=== PATIENT | male | born 1940 | race Caucasian/White ===

== ENCOUNTER 2018-03-13 12:17 | Observation (INO) ==
[2018-03-13] MEDS ORDERED: Naloxone 0.4 MG/ML INJ IVP PRN (14:09)
[2018-03-13] MEDS ORDERED: traMADol 50 MG TABLET PO PRN (14:09)
[2018-03-13] MEDS ORDERED: Acetaminophen 325 MG TABLET PO PRN (14:09)
--- NOTE | 2018-03-13 15:39 | Internal Med History&Physical ---
Date of Encounter: 03/13/18 Time of Encounter: 15:10 Internal Medicine - H&P: HPI Chief complaint: Syncope Admitted From: Emergency Dept Plans for Post Hospital Care: Home History of present illness: Mr. Davidson is a 77 year old male with known past medical history of COPD, hypertension, hyperlipidemia, diabetes type II, paroxysmal a fib on eliquis for anticoagulation, who follows with collector of internal revenue Dr. Saxena who recently increased his Cardizem to 240 mg, now he was brought into the [facility] emergency room by family stating that he had syncopal episode this morning while he was drinking coffee. Patient stated he felt lightheaded, dizzy and diaphoretic before he passed out. It was replaced by his family members they noticed patient had some tremors, shakiness and his opportunism lower extremities concerning for possible convulsions. The whole episode lasted at least more than 10 minutes. By the time patient became more alert, awake he was with EMS and his hearted was in 30s. His initial EKG showed junctional rhythm with heart rate of 34 to the right bundle branch block patient was given atropine and IV fluid bolus. Patient had CT of the head done after he returned back from the CT scan he had another brief episode of he became very pale, his eyes rolled back and he was unresponsive for a few seconds. At that time his heart rate was in 70s blood pressure was 119 / 68. The ER doctor talked to our on-call collector of internal revenue Dr. Dominguez, who believes that patient had junctional bradycardia because of recent increasing dose of Cardizem on top of his regular Coreg. Pt was seen and examined at bed side here. He is alert, awake and O x 3. Denied any CP / SOB. Past Med Surg Social Fam HX - Past Medical History Medical history: COPD, coronary artery disease, diabetes, hypertension, myocardial infarction Psychiatric history: no psych history - Past Surgical History Surgical History: appendectomy Additional surgical history: heart cath - Social History Smoking Status: Former smoker Alcohol use: occasionally Drug use: none - Additional Family History Additional family history: Family hsitory reviewed and non contribuitory to current problem. Internal Medicine - H&P: Meds Albuterol Sulfate [Ventolin Hfa] 18 gm IH Q4H PRN 03/13/18 [History] Apixaban [Eliquis] 5 mg PO BID 03/13/18 [History] Atorvastatin [Lipitor] 40 mg PO HS 03/13/18 [History] Carvedilol 12.5 mg PO BID 03/13/18 [History] Diltiazem HCl [Cardizem LA] 240 mg PO DAILY 03/13/18 [History] Dulaglutide [Trulicity] 0.75 mg SQ QWEEK 03/13/18 [History] FLUoxetine HCl [PROzac] 20 mg PO DAILY 03/13/18 [History] GlipiZIDE [Glipizide Xl] 10 mg PO 03/13/18 [History] Insulin Glargine,Hum.rec.anlog [Lantus Solostar] 70 unit SQ QPM 03/13/18 [History] Losartan/Hydrochlorothiazide [Losartan-Hctz 100-25 mg Tab] 1 each PO DAILY 03/13/18 [History] Metformin HCl [Fortamet] 1,000 mg PO BID 03/13/18 [History] Pregabalin [Lyrica] 150 mg PO BID 03/13/18 [History] Tiotropium [Spiriva] 18 mcg IH 0700 03/13/18 [History] hydrALAZINE [HydrALAZINE] 25 mg PO TID 03/13/18 [History] Allergy/AdvReac Type Severity Reaction Status Date / Time Iodinated Contrast- Oral and Allergy Hives Verified 03/13/18 10:22 IV Dye All Systems PM: A 10-system review of systems was performed and is negative for pertinent findings except as documented above in the HPI. Review of systems: All the systems are reviewed everything is benign except the systems and symptoms I mentioned in the history of present illness - Constitutional Vitals: Temp Pulse Resp BP Pulse Ox 97.6 F 63 18 178/77 100 03/13/18 14:14 03/13/18 14:14 03/13/18 14:14 03/13/18 14:14 03/13/18 14:14 General appearance: Present: mild distress, A&O X 3, answers questions appropriately Exam: See below - Head Head exam: Present: atraumatic, normal inspection - Neck Neck exam general surgery: Present: supple - Respiratory Respiratory exam: Present: decreased breath sounds. Absent: rales, respiratory distress, rhonchi, wheezes - Cardiovascular Cardiovascular exam: Present: bradycardia, +S1, +S2. Absent: systolic murmur, tachycardia - GI/Abdominal GI/Abdominal exam: Present: distended, normal bowel sounds, soft. Absent: rebound, rigid, tenderness - Extremities Exam Extremities exam: Absent: calf tenderness, pedal edema, tenderness - Back Exam Back exam: Absent: CVA tenderness (L), CVA tenderness (R) - Neurological Exam Neurological exam: Present: alert, oriented X3 - Psychiatric Psychiatric exam: Present: normal affect, normal mood - Skin Skin exam: Absent: rash - Assessment and plan (1) Syncope Current Visit: Yes Status: Acute Assessment and plan: Will place the pt into Tele for observation Pt's Syncope seems to be more like due to bradycardia also his syncopal episode is concerning for possible seizure activity to however still need to r/o ACS vs Arrhythmia will place the pt on surveillance system monitor check serial troponin so far negative trop Cont ASA will get 2 D echo in AM Will check FLP in AM reviewed his EKG from [facility] [address] which showing junctional bradycardia Repeat EKG showed NSR with HR @ 69. 1st degree AV block with MO @ 301 Ordered another EKG here cardiology already consulted by [facility] [address] attending Held his Coreg and Cardizem also holding his Eliquis if patient need to go for any procedures in the morning Qualifiers: Syncope type: unspecified Qualified Code(s): R55 - Syncope and collapse (2) Symptomatic bradycardia Current Visit: No Status: Acute Assessment and plan: as per above NPO after mid night Held Coreg + Cardizem (3) Seizure Current Visit: Yes Status: Acute Assessment and plan: His syncopal episodes are concerning for seizure activity too Neuro consulted for further eval seizure precautions EEG in the morning MRI of brain for further work up appreciate urology recommendations will hold off anticonvulsant medication for now (4) Paroxysmal A-fib Current Visit: Yes Status: Acute Assessment and plan: Held his Coreg and Cardizem also holding his Eliquis if patient need to go for any procedures in the morning (5) CAD (coronary artery disease) Current Visit: Yes Status: Acute Assessment and plan: Resumed all his home medications except beta luci and Cardizem Qualifiers: Coronary Disease-Associated Artery/Lesion type: [place] artery [place] vs. transplanted heart: [place] heart Associated angina: without angina Qualified Code(s): I25.10 - Atherosclerotic heart disease of [place] coronary artery without angina pectoris (6) HTN (hypertension) Current Visit: Yes Status: Acute Assessment and plan: Fairly controlled resumed home medications Losartan and Hydralazine will give hydralazine IV PRN Qualifiers: Hypertension type: essential hypertension Qualified Code(s): I10 - Essential (primary) hypertension (7) DM2 (diabetes mellitus, type 2) Current Visit: Yes Status: Acute Assessment and plan: On ADA diet check hemoglobin A-1 C placed him on insulin sliding scale and Levemir at 30 U HS Qualifiers: Diabetes mellitus terminal press operator insulin use: with fpc use Diabetes mellitus complication status: without complication Qualified Code(s): E11.9 - Type 2 diabetes mellitus without complications; Z79.4 - terminal press operator (current) use of insulin - Time Spent With Patient Total time spent is greater than 50% in coordination of care (as documented) at patient's floor/unit and/or counseling patient:
[2018-03-13] MEDS ORDERED: Dextrose Gel 15 GM/37.5 ML TUBE PO PRN ×2 (15:44)
[2018-03-13] MEDS ORDERED: D5% in Water 1,000 ML IVC PRN (15:44)
[2018-03-13] MEDS ORDERED: *HR* Dextrose 50 % in Water (Syg) 50 ML SYRINGE IVP PRN (15:44)
--- NOTE | 2018-03-13 15:59 | Neurology - Consult Note ---
<Abdirahman Quintanilla J - Last Filed: 03/13/18 16:05> Date of Encounter: 03/13/18 Time of Encounter: 15:42 Assessment and Plan (1) Syncope Current Visit: Yes Status: Acute Patient presented with syncope and collapse secondary to symptomatic bradyca rdia. It is reported that during the syncopal episode he was having convulsive activity, thus Neurology has been consulted. The patient cannot recall any of these events however they were witnessed by friends and family. He denies any tongue biting, loss of bowel or bladder function. No prior history of seizure disorder. I suspect that most likely the convulsive activity was secondary to hypoxia given a loss of consciousness and symptomatic bradycardia. However I agree with seizure workup as outlined below. On presentation was found to have a heart rate in the 30s. EKG w/ junctional bradycardia, right bundle branch block and anterior fascicular block. History of A. fib, on eliquis and Cardizem; Cardizem dose recently increased. CT of head obtained in the ED and per my review is negative for acute intracranial abnormality. -Recommend syncopal workup; I have discussed this with the primary team -TSH -Obtain carotid Dopplers -Echocardiogram -MRI of brain -EEG -cardiology also following -continuous cardiac monitoring -serial troponins Qualifiers: Syncope type: unspecified Qualified Code(s): R55 - Syncope and collapse (2) Symptomatic bradycardia Current Visit: No Status: Acute plan as stated above. (3) Convulsions Current Visit: Yes Status: Acute plan as stated above Qualifiers: Convulsion type: unspecified Qualified Code(s): R56.9 - Unspecified convulsions History of Present Illness Chief complaint: Symptomatic bradycardia, convulsions with concern for seizures HPI: Mr. Davidson is a 77 year old male with a PMH of COPD, HLD, HTN, DM II, A-fib (on eliquis, cardizem) who presents to [facility] with symptomatic bradycardia heart rate in 30s. He reports that he was at a local gas station this morning having coffee with friends and he began to feel dizzy and had a loss of consciousness. He states that he does not remember any of these events. However, his daughter is at bedside reports that she was informed that during this episode he was also having convulsions and she states that while in the ED he had a similar event with convulsions. On arrival to the ED he was found to have a heart rate in the 30s and to have a junctional rhythm with a right bundle-branch block and an anterior fascicular block. I reviewed the EKG and confirmed this as well. He does note that his cardizem dose was recetnly increased. This would certainly explain his bradycardia and syncope and could cause the convulsive activity; considering the loss of consciousness and bradycardia he may have had hypoxic induced convulsions. He denies any history of seizures. He denies any tongue biting or loss of bowel/bladder function. He does admit to being confused shortly after the events and to being lethargic as well. Of note, he has had syncopal episodes in the past but denies any workup for the events. The patient states that he feels like these episodes were caused by his blood sugar as he reports taking 50 additional units of insulin this morning due to hyperglycemia. I have reviewed his CT of the head and find no acute intracranial abnormalities. Additionally, his CBC and BMP showed no derangements or signs of infection. As such, neurology will follow for syncope and concerns for seizures. Past Med Surg Social Fam HX - Past Medical History Medical history: COPD, coronary artery disease, diabetes, hypertension, myocardial infarction Psychiatric history: no psych history - Past Surgical History Surgical History: appendectomy Additional surgical history: heart cath - Social History Smoking Status: Former smoker Alcohol use: occasionally Drug use: none Medications and Allergies Albuterol Sulfate [Ventolin Hfa] 18 gm IH Q4H PRN 03/13/18 [History] Apixaban [Eliquis] 5 mg PO BID 03/13/18 [History] Atorvastatin [Lipitor] 40 mg PO HS 03/13/18 [History] Carvedilol 12.5 mg PO BID 03/13/18 [History] Diltiazem HCl [Cardizem LA] 240 mg PO DAILY 03/13/18 [History] Dulaglutide [Trulicity] 0.75 mg SQ QWEEK 03/13/18 [History] FLUoxetine HCl [PROzac] 20 mg PO DAILY 03/13/18 [History] GlipiZIDE [Glipizide Xl] 10 mg PO 03/13/18 [History] Insulin Glargine,Hum.rec.anlog [Lantus Solostar] 70 unit SQ QPM 03/13/18 [History] Losartan/Hydrochlorothiazide [Losartan-Hctz 100-25 mg Tab] 1 each PO DAILY 03/13/18 [History] Metformin HCl [Fortamet] 1,000 mg PO BID 03/13/18 [History] Pregabalin [Lyrica] 150 mg PO BID 03/13/18 [History] Tiotropium [Spiriva] 18 mcg IH 0700 03/13/18 [History] hydrALAZINE [HydrALAZINE] 25 mg PO TID 03/13/18 [History] Allergy/AdvReac Type Severity Reaction Status Date / Time Iodinated Contrast- Oral and Allergy Hives Verified 03/13/18 10:22 IV Dye All Systems: The remainder of the systems were reviewed and are negative Review of Systems: REVIEW OF SYSTEMS GENERAL: Negative for any nausea, vomiting, fevers, chills, or weight loss, POSITIVE for fatigue which is chronic ongoing greater than 6 months NEUROLOGIC: Negative for any facial asymmetry, dysphagia, dysarthria, hemiparesis, hemisensory deficits, vertigo, ataxia, paresthesias, speech or language dysfunction - - POSITIVE: Reporting intermittent double vision lasting a few seconds. Not present at time of assessment. Family at bedside and mentions convulsive activity with loss of consciousness, confusion and lethargy. PSYCH: negative: agitation/irritability, anxiety, delirium, restlessness, personality changes. HEENT: Negative for any head trauma, neck trauma, neck stiffness, photophobia, phonophobia, dysphagia, CARDIAC: Negative for any chest pain, dyspnea on exertion, HTN, peripheral edema. PULMONARY: Negative for any shortness of breath GENITOURINARY: Negative for any dysuria, hematuria, incontinence. ENDOCRINE: Negative Thyroid trouble, heat/cold intolerance, excessive sweating, thirst, hunger, MUSCULOSKELETAL: negative Joint pain, stiffness, loss of strength, Joint swelling, muscle pain/swelling, limitations to motor activity or tolerance Physical Examination - Vital Signs Vital Signs: Initial Vital Signs Temp Pulse Resp BP Pulse Ox 97.6 F 63 18 178/77 100 03/13/18 14:14 03/13/18 14:14 03/13/18 14:14 03/13/18 14:14 03/13/18 14:14 - Exam Exam: Examination: General Examination: *CONSTITUTIONAL: Temperature 97.6, pulse rate 63, respiratory rate 18 on 2 L nasal cannula and 100%, BP 178/77 *GENERAL APPEARANCE OF PATIENT appears healthy and well groomed *EYES: pupils equal, round, reactive to light and accommodation, conjunctiva clear without masses or ulcerations, fundi normal. *CARDIOVASCULAR RRR, S1, S2, no mumurs, rubs, or gallops, no peripheral edema, distal temperature normal, dorsalis pedis pulses normal. 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 No abnormal movements, fasciculations or atrophy identified. Neurological: *ORIENTATION to person, place, time and situation *RECURRENT AND REMOTE MEMORY short-term memory intact, however, patient unable to recall events from this morning. *ATTENTION AND CONCENTRATION are normal, keep her to space and examined follow commands and does not appear to be easily distracted *LANGUAGE FUNCTION no significant aphasia or dysarthia was noted. *FUND OF KNOWLEDGE aware of current events, past history, vocabulary *MENTAL attention span and concentration normal. , He appears to have appropriate insight and good judgment *CN II optic fundi were normal, no papilledema noted. *CN III,IV, PERRLA extraocular eye movements were full, no nystagmus and no ptosis noted. *CN V shows normal sensation and jaw opens symmetrically. *CN VII shows normal facial movement symmetrically, upper and lower bilaterally. *CN VIII shows no significant hearing loss on examination in the office. *CN IX,,X palate elevated symmetrically and normal gag reflex was noted. *CN XI normal strength in the sternocleidomastoid muscles, symmetrical shoulder shrugging. *CN XII tongue protruded in the midline, with normal strength and movement. *SENSORY EXAMINATION pinprick sensation intact, and light touch(vibration sense). *REFLEXES: deep tendon reflexes were normal and symmetrical , grade 1/4 diffusely but he does have a history of diabetes, no pathological reflexes were noted. *CEREBELLAR TESTING normal finger to nose, heel/knee/krishna, and tandem walk. *PAIN LEVEL 0/10 Results - Diagnostic Findings EKG: image reviewed Chest x-ray: image reviewed Additional findings: CT head reviewed and negative for acute intercranial abnormality Consult Discharge Plan - Plan Referrals: Glenn Saucedo MD [Primary Care Provider] - <Ruslan Olvera I - Last Filed: 03/13/18 16:25> Date of Encounter: 03/13/18 Assessment and Plan (1) Symptomatic bradycardia Current Visit: No Status: Acute (2) Syncope Current Visit: Yes Status: Acute Pt was seen and examined, my medical decision was reviewed with the CHIEF ESTIMATOR , I agree with the documented findings, disposition and treatment plan, as described except to the extent set forth below. Pt symptoms and history seemed to be consistent with convulsive syncope, likely related to hypoperfusion, brain hypoxia can trigger convulsive activity but did not necessary means these are seizures especially when patient does not have any postictal state with these episodes. Regardless we will get an EEG as well as imaging of the head to exclude any intracranial abnormality Cardiology services consulted for the treatment of his bradycardia Discussed and explained to the patient and family Ruslan Olvera MD Qualifiers: Syncope type: unspecified Qualified Code(s): R55 - Syncope and collapse (3) Convulsions Current Visit: Yes Status: Acute Qualifiers: Convulsion type: unspecified Qualified Code(s): R56.9 - Unspecified convulsions History of Present Illness HPI: Mr. Davidson is a 77 year old male All Systems: The remainder of the systems were reviewed and are negative Physical Examination - Vital Signs Vital Signs: Initial Vital Signs Temp Pulse Resp BP Pulse Ox 97.6 F 63 18 178/77 100 03/13/18 14:14 03/13/18 14:14 03/13/18 14:14 03/13/18 14:14 03/13/18 14:14
[2018-03-13 16:29] LABS: Estimated Average Glucose 180 mg/dl; Hemoglobin A1C 7.9 %
[2018-03-13] MEDS: Insulin LISPRO 300 UNITS/3 ML VIAL SQ SCH ×2 (16:49→21:22)
[2018-03-13] MEDS ORDERED: Insulin DETEMIR 100 UNIT/ML X5UNITS SQ SCH (21:00)
[2018-03-13] MEDS ORDERED: Perflutren Lipid Microsphere 1.3 ML in 0.9 % Sodium Chloride 8.7 ML IVP ONE (21:01)
[2018-03-13] MEDS: *HR* HYDROcodone/Acet 5/325 mg TABLET PO PRN (21:20)
[2018-03-13] MEDS: hydrALAZINE 25 MG TABLET PO SCH (21:20)
[2018-03-13] MEDS: Pregabalin 75 MG CAPSULE PO SCH (21:21)
[2018-03-14 04:18] LABS: Hematocrit 37.5 % (37.5-50.1); Hemoglobin 12.4 g/dL (12.9-16.9); Mean Corpuscular HGB Conc 33.1 g/dL (31.6-35.5); Mean Corpuscular Hemoglobin 28.2 pg (28.0-33.3); Mean Corpuscular Volume 85.2 fL (83.0-100.0); Mean Platelet Volume 12.2 fL (9.4-12.4); Platelet Count 185 K/mcL (140-400); Red Cell Distribution Width 13.2 % (11.5-14.5)
[2018-03-14 04:38] LABS: BUN/Creatinine Ratio 21 (6-26); Blood Urea Nitrogen 21 mg/dL (8-23); Calcium 9.3 mg/dL (8.6-10.3); Carbon Dioxide 26 mEq/L (23-29); Chloride 106 mEq/L (98-107); Chol/HDL Ratio 2.9 (0-4.9); Cholesterol 102 mg/dL (< 200); Glucose 97 mg/dL (70-105); HDL Cholesterol 35 mg/dL (40-59); LDL Cholesterol,Calculated 33 mg/dL (0-99); Magnesium 1.4 mg/dL (1.6-2.6); Osmolality,Calculated 293 (280-300); Potassium 3.8 mEq/L (3.5-5.1); Sodium 140 mEq/L (136-145); Triglycerides 171 mg/dL (< 150); eGFR For Non-African Americans > 60 (> 60)
[2018-03-14] MEDS: Tiotropium 18 MCG inhalation IH SCH (08:05)
[2018-03-14] MEDS: Magnesium Oxide 400 MG TABLET PO SCH (09:35)
[2018-03-14] MEDS: Pregabalin 75 MG CAPSULE PO SCH ×2 (09:35→19:52)
[2018-03-14] MEDS: hydrALAZINE 25 MG TABLET PO SCH ×3 (09:35→19:52)
[2018-03-14] MEDS: Insulin LISPRO 300 UNITS/3 ML VIAL SQ SCH ×4 (09:36→21:50)
--- NOTE | 2018-03-14 09:53 | Cardiology Consult Note ---
<Mariana Rodgers - Last Filed: 03/14/18 11:18> Date of Encounter: 03/14/18 Time of Encounter: 08:00 Assessment and Plan (1) Symptomatic bradycardia Current Visit: No Status: Acute Yesterday had an episode with symptomatic bradycardia. He is on carvedilol 12.5 mg and diltiazem 240 at home. His EKG showed junctional rhythm with heart rate in the 30s upon EMS presentation. Continue to hold carvedilol and diltiazem at this time heart rate is in the 60s. TSH is low indicated possible hyperthyroidism which can further effect the heart rate but most often is associated with tachycardia not bradycardia. (2) Syncope Current Visit: Yes Status: Acute Reported one syncopal episode at home yesterday and during that episode he was noted to be bradycardic. He noted two previous syncopal episodes last year in [place] and during the last episode his glucose was noted to be in high 400s. During this episode his home glucose was above 250. Neurology is working up the syncope given he also had witnessed tremor and shakiness associated with this episode. -Further recommendations from neurology Qualifiers: Syncope type: unspecified Qualified Code(s): R55 - Syncope and collapse (3) HTN (hypertension) Current Visit: Yes Status: Acute Chronic hypertension. Notes history since the age of 20. Currently he is only on losartan. Consider restarting home HCTZ. Qualifiers: Hypertension type: essential hypertension Qualified Code(s): I10 - Essential (primary) hypertension (4) Afib Current Visit: Yes Status: Chronic History of atrial fibrillation. Was on eliquis and rate control medications at home. Two weeks ago his diltiazem dose was increased to 240. At presentation to the hospital his rhythm was regular although he was bradycardic. -Restart home carvedilol -Decreased cardizem to 120 mg -Restarted eliquis Qualifiers: Atrial fibrillation type: chronic Qualified Code(s): I48.2 - Chronic atrial fibrillation Discussion w patient/family: The assessment and plan as outlined above was discussed with the patient and/or family members who expressed understanding and agreement. All questions were answered. Thank you for involving us in the care of your patient. Please call with any questions. History of Present Illness Consult date: 03/13/18 Requesting physician: Olesya Waldron Consult reason: symptomatic afib History of present illness: Mr. Davidson is a 77 year old male who presented to the ED complaining of recent syncopal episode associated with tremor and shakiness of extremities which lasted 10 minutes. He noted two prior similar episodes and he noted the last episode was associated with hyperglycemia with his glucose reading of above 400 during the last episode He noted this episode was unprovoked yesterday, he was sitting in a chair after breakfast and drinking his coffee and started having this episode which was witnessed by his friend. His friend checked his glucose at that time and his blood sugar was noted to be above 250 at that time. He had taken his morning medications prior to episode. He denied any changes in his diet or lifestyle but noted 2 weeks ago he had an increase in his cardizem to 240 and since taking the medication he had not noticed any changes in his heart rate. Denied any palpitation. When EMS presented his heart rate was noted to be in the 30s. His initial EKG showed junctional rhythm with right bundle branch block and received atropine with IV fluid bolus. Since his admission his heart rate has remained in the 60s. His blood pressure is elevated but he is not receiving some of his home antihypertensives. He is laying comfortably in bed today and has no further complaints or any further syncopal episodes. Denied fever, chills, nausea, emesis, shortness of breath or chest pain. Past Med Surg Social Fam HX - Past Medical History Medical history: COPD, coronary artery disease, diabetes, hypertension, myocardial infarction Psychiatric history: no psych history - Past Surgical History Surgical History: appendectomy Additional surgical history: heart cath - Social History Smoking Status: Former smoker Alcohol use: occasionally Drug use: none Medications and Allergies Albuterol Sulfate [Ventolin Hfa] 2 puff IH Q4H PRN 03/13/18 [History] Apixaban [Eliquis] 5 mg PO BID 03/13/18 [History] Atorvastatin [Lipitor] 40 mg PO DAILY 03/13/18 [History] FLUoxetine HCl [PROzac] 20 mg PO DAILY 03/13/18 [History] Insulin Glargine,Hum.rec.anlog [Lantus Solostar] 70 unit SQ HS 03/13/18 [History] Losartan/Hydrochlorothiazide [Losartan-Hctz 100-25 mg Tab] 1 tab PO DAILY 03/13/18 [History] Metformin HCl [Fortamet] 1,000 mg PO BID 03/13/18 [History] Pregabalin [Lyrica] 150 mg PO BID 03/13/18 [History] RX: Carvedilol 12.5 mg PO BID 03/13/18 [History] Tiotropium [Spiriva] 18 mcg IH DAILY 03/13/18 [History] RX: GlipiZIDE XL (24 HR) [Glucotrol XL] 10 mg PO DAILY 03/14/18 [History] Vitamin B Complex [Balanced B-50] 1 tab PO DAILY 03/14/18 [History] dilTIAZem HCl [Diltiazem 24Hr ER] 240 mg PO DAILY 03/14/18 [History] Allergy/AdvReac Type Severity Reaction Status Date / Time Iodinated Contrast- Oral and Allergy Hives Verified 03/14/18 08:09 IV Dye All Systems Review: The remainder of the systems were reviewed and are negative - Constitutional Constitutional: no fatigue, no fever(s), no weakness - Cardiovascular Cardiovascular: dyspnea on exertion, orthopnea, no chest pain at rest, no chest pain with exertion, no dyspnea at rest, no palpitations, no paroxysmal nocturnal dyspnea - Respiratory Respiratory: no cough, no dyspnea - Gastrointestinal Gastrointestinal: no abdominal pain, no hematochezia, no melena - Genitourinary Genitourinary: no dysuria, no hematuria - Musculoskeletal Musculoskeletal: no muscle weakness, no myalgias - Integumentary Integumentary: no erythema, no rash - Neurological Neurological: no focal weakness, no numbness, no syncope - Psychiatric Psychiatric: no anxiety, no depression Physical Examination Vital Signs, Last 4 Hours Temp Pulse Resp BP Pulse Ox 03/14/18 07:40 97.6 F 61 18 186/78 95 General: Conversant, No Apparent Distress HEENT: Atraumatic, Normocephaly, Mucus Membranes Moist Neck: No JVD, Normal carotid pulses Cardiac: Reg Rate and Rhythm, Normal S1 and S2, No Murmur Lungs: Normal Breath Sounds, No Wheeze, Rales, Rhonchi Neuro: Alert and responsive, No focal deficits noted Abdomen: Soft, Non-Tender Skin: No rashes noted on visualized skin Musculoskeletal: No Chest Wall Tenderness Extremities: No Edema, Normal Pulses Results 03/14/18 03:51 03/14/18 03:51 Lab Results 03/13/18 03/13/18 03/13/18 14:31 16:06 20:08 WBC Hgb Hct Plt Count Sodium Potassium Chloride Carbon Dioxide BUN Creatinine Glucose Calcium Magnesium Troponin I < 0.03 < 0.03 TSH 0.090 L 03/14/18 03/14/18 03:51 03:51 WBC 6.7 Hgb 12.4 L Hct 37.5 Plt Count 185 Sodium 140 Potassium 3.8 Chloride 106 Carbon Dioxide 26 BUN 21 Creatinine 1.00 Glucose 97 Calcium 9.3 Magnesium 1.4 L Troponin I TSH Consult Discharge Plan - Plan Referrals: Glenn Saucedo MD [Primary Care Provider] - 03/20/18 11:00 am () <Vito Saxena - Last Filed: 03/14/18 11:59> Date of Encounter: 03/14/18 - Attending Attestation I examined this patient and my medical decision-making was reviewed with the Resident Physician. I agree with the documented findings, disposition and treat ment plan as described except to the extent set forth below. Known PAF, HTN. Presents with bradycardia likely secondary to medications. Would hold cardizem. If blood pressure requires could add back norvasc. Assessment and Plan Discussion w patient/family: The assessment and plan as outlined above was discussed with the patient and/or family members who expressed understanding and agreement. All questions were answered. Thank you for involving us in the care of your patient. Please call with any questions. History of Present Illness History of present illness: Mr. Davidson is a 77 year old male All Systems Review: The remainder of the systems were reviewed and are negative Physical Examination Vital Signs, Last 4 Hours Temp Pulse Resp BP Pulse Ox 03/14/18 11:49 98.7 F 70 17 178/80 94 03/14/18 08:05 16 95 Results 03/14/18 03:51 03/14/18 03:51 Lab Results 03/13/18 03/13/18 03/13/18 14:31 16:06 20:08 WBC Hgb Hct Plt Count Sodium Potassium Chloride Carbon Dioxide BUN Creatinine Glucose Calcium Magnesium Troponin I < 0.03 < 0.03 TSH 0.090 L 03/14/18 03/14/18 03:51 03:51 WBC 6.7 Hgb 12.4 L Hct 37.5 Plt Count 185 Sodium 140 Potassium 3.8 Chloride 106 Carbon Dioxide 26 BUN 21 Creatinine 1.00 Glucose 97 Calcium 9.3 Magnesium 1.4 L Troponin I TSH
--- NOTE | 2018-03-14 10:12 | Neurology Progress Note ---
<Abdirahman Quintanilla J - Last Filed: 03/14/18 13:37> Date of Encounter: 03/14/18 Time of Encounter: 10:11 Assessment and Plan (1) Syncope Current Visit: Yes Status: Acute Patient presented with syncope and collapse secondary to symptomatic bradyc ardia. During syncopal event was witnessed to have convulsive activity. Neurology has been consulted for evaluation of seizures/convulsions. The patient does not have any prior history of seizures. MRI brain did not reveal any acute infarct or organic cause for seizure activity. EEG is pending at this time. Echocardiogram with LVEF 60-65%, atypical septal motion due to BBB, moderate LV WOLF, mild MR I believe most likely that the patient has had convulsive syncope as hypoperfusion with syncope BRAIN hypoxia and convulsions. Overnight the patient continues to be stable and has not had any return of syncope or seizure-like events. He reports that he is back to baseline status. Per my examination the patient does not have any focal or lateralizing deficits. Cardiology following for management of symptomatic bradycardia. Further planning will be based on EEG results. At this time we will continue to monitor. Qualifiers: Syncope type: unspecified Qualified Code(s): R55 - Syncope and collapse (2) Symptomatic bradycardia Current Visit: No Status: Acute plan as stated above. (3) Convulsions Current Visit: Yes Status: Acute plan as stated above Qualifiers: Convulsion type: unspecified Qualified Code(s): R56.9 - Unspecified conv ulsions Subjective Principal diagnosis: Symptomatic bradycardia, syncope and collapse, concern for seizures Interval history: Mr. Davidson is a 77 year old male with a PMH of COPD, HLD, HTN, DM II, A-fib (on eliquis, cardizem). He presented with symptomatic bradycardia heart rate in 30s. During syncopal event the patient was noted to have compulsive activity. Neurology was consulted for syncope and concern for seizures. Today the patient is resting comfortably in bed in no acute distress. He denies any return of syncope or seizure activities. He denies any chest pain, shortness of breath, palpitations. His heart rate is 70 bpm and RRR. He has had no acute change in condition over 90. I discussed the MRI findings with the patient and explained that he has not had an acute infarct. Furthermore discussed that I believe his convulsive activity was secondary to syncopal event with hypoxia. He did have an EEG this morning but the results are still pending at this time. He denies any further questions at this time. Objective - Constitutional Vitals: Temp Pulse Resp BP Pulse Ox 97.6 F 61 16 186/78 95 03/14/18 07:40 03/14/18 07:40 03/14/18 08:05 03/14/18 07:40 03/14/18 08:05 Exam: Examination: General Examination: *CONSTITUTIONAL: Temperature 90 8.7F, pulse rate 70, respiratory rate 17 and 94% on room air, BP 178/80 *GENERAL APPEARANCE OF PATIENT appears healthy and well groomed *EYES: pupils equal, round, reactive to light and accommodation, conjunctiva clear without masses or ulcerations, fundi normal. *CARDIOVASCULAR RRR, S1, S2, no mumurs, rubs, or gallops, no peripheral edema, distal temperature normal, dorsalis pedis pulses normal. Musculoskeletal: *GAIT AND STATION normal, with normal Romberg testing, no abnormalities such as broad base gait or spasticity *ASSESSMENT OF MUSCLE STRENGTH IN THE UPPER AND LOWER EXTREMITIES bilateral deltoid, bicep, tricep, display carver strength, hip flexors ,anterior tibialis, dorsoflexion of the foot 5/5 *MUSCLE TONE IN THE UPPER AND LOWER EXTREMITIES normal. No abnormal movements, fasciculations or atrophy identified. Neurological: *ORIENTATION to person, place, time and situation *RECURRENT AND REMOTE MEMORY intact *ATTENTION AND CONCENTRATION are normal, follows commands *LANGUAGE FUNCTION no significant aphasia or dysarthia was noted. *FUND OF KNOWLEDGE aware of current events, past history, vocabulary *MENTAL attention span and concentration normal, Retains appropriate insight and judgment *CN II optic fundi were normal, no papilledema noted. *CN III,IV, PERRLA extraocular eye movements were full, no nystagmus and no ptosis noted. *CN V shows normal sensation and jaw opens symmetrically. *CN VII shows normal facial movement symmetrically, upper and lower bilaterally. *CN VIII shows no significant hearing loss on examination in the office. *CN IX,,X palate elevated symmetrically and normal gag reflex was noted. *CN XI normal strength in the sternocleidomastoid muscles, symmetrical shoulder shrugging. *CN XII tongue protruded in the midline, with normal strength and movement. *SENSORY EXAMINATION pinprick sensation intact, and light touch(vibration sense). *REFLEXES: deep tendon reflexes were normal and symmetrical , grade 1/4 diffusely but he does have a history of diabetes, no pathological reflexes were noted. *CEREBELLAR TESTING normal finger to nose, heel/knee/krishna, and tandem walk. *PAIN LEVEL 0/10 Results - Laboratory Findings CBC and BMP: 03/14/18 03:51 03/14/18 03:51 Abnormal lab findings: Abnormal lab results Hgb 12.4 g/dL (12.9-16.9) L 03/14/18 03:51 POC Glucose 136 mg/dL (70-99) H 03/13/18 16:01 Hemoglobin A1c 7.9 % (-5.6) H 03/13/18 16:06 Magnesium 1.4 mg/dL (1.6-2.6) L 03/14/18 03:51 Triglycerides 171 mg/dL (< 150) H 03/14/18 03:51 VLDL Cholesterol, Calc 34 mg/dL (< 31) H 03/14/18 03:51 HDL Cholesterol 35 mg/dL (40-59) L 03/14/18 03:51 TSH 0.090 mcIU/mL (0.340-5.600) L 03/13/18 16:06 Consult Discharge Plan - Plan Referrals: Glenn Saucedo MD [Primary Care Provider] - 03/20/18 11:00 am () <Ruslan Olvera I - Last Filed: 03/14/18 16:13> Date of Encounter: 03/14/18 Assessment and Plan (1) Symptomatic bradycardia Current Visit: No Status: Acute (2) Syncope Current Visit: Yes Status: Acute Pt was seen and examined, my medical decision was reviewed with the EDITOR MAP, I agree with the documented findings, disposition and treatment plan, as described e xcept to the extent set forth below. Patient seems to be stable , MRI did not show any evidence of acute stroke. We will review the EEG No indication to start any antiepileptic medication Follow cardiology recommendations regarding bradycardia Ruslan Olvera MD Qualifiers: Syncope type: unspecified Qualified Code(s): R55 - Syncope and collapse (3) Convulsions Current Visit: Yes Status: Acute Qualifiers: Convulsion type: unspecified Qualified Code(s): R56.9 - Unspecified convulsions Objective - Constitutional Vitals: Temp Pulse Resp BP Pulse Ox 98.7 F 70 17 178/80 94 03/14/18 11:49 03/14/18 11:49 03/14/18 11:49 03/14/18 11:49 03/14/18 11:49 Results - Laboratory Findings CBC and BMP: 03/14/18 03:51 03/14/18 03:51 Abnormal lab findings: Abnormal lab results Hgb 12.4 g/dL (12.9-16.9) L 03/14/18 03:51 Hemoglobin A1c 7.9 % (-5.6) H 03/13/18 16:06 Magnesium 1.4 mg/dL (1.6-2.6) L 03/14/18 03:51 Triglycerides 171 mg/dL (< 150) H 03/14/18 03:51 VLDL Cholesterol, Calc 34 mg/dL (< 31) H 03/14/18 03:51 HDL Cholesterol 35 mg/dL (40-59) L 03/14/18 03:51 TSH 0.090 mcIU/mL (0.340-5.600) L 03/13/18 16:06
--- NOTE | 2018-03-14 11:59 | Internal Med Progress Note ---
<Deon Guardado - Last Filed: 03/14/18 12:13> Date of Encounter: 03/14/18 Time of Encounter: 09:00 - Assessment and plan (1) Syncope Current Visit: Yes Status: Acute Assessment and plan: Likely secondary to bradycardia caused increase in Cardizem. Troponins are negative. Will need to f/u with an echocardiogram to rule out ACS. Magnesium is low. Continue telemetry for possible arrhythmia. Repeat EKG shows a 1st degree block with [place] at 301 and HR of 69 with NSR. Patient had convulsions upon syncopal episode. CT and MRI of brain show no acute abnormality. Cardiology already consulted. - Originally on hold. Restart cardizem and decrease home dose from 240 to 120 mg. - Restart home dose of Carvedilol. - Restarted home dose of elaquis. Qualifiers: Syncope type: unspecified Qualified Code(s): R55 - Syncope and collapse (2) Symptomatic bradycardia Current Visit: No Status: Acute Assessment and plan: Currently denies any chest pain, SOB, light-headedness, or dizziness. HR normal. - Repeat EKG. - See plan above. (3) Syncopal seizure Current Visit: No Status: Acute Assessment and plan: No post-ictal state. No loss of bladder function. Neuro consulted. - Seizure precautions. - EEG today. - Hold of anticonvulsants for now. (4) Paroxysmal A-fib Current Visit: Yes Status: Acute Assessment and plan: HR controlled. - Restarting cardizem and carvedilol - Restarting Eliquis. (5) CAD (coronary artery disease) Current Visit: Yes Status: Acute Assessment and plan: - Continue statin. - Resumed carvedilol and cardizem. - Resumed Eliquis. Qualifiers: Coronary Disease-Associated Artery/Lesion type: hughes artery [place] vs. transplanted heart: hughes heart Associated angina: without angina Qualified Code(s): I25.10 - Atherosclerotic heart disease of hughes coronary artery without angina pectoris (6) HTN (hypertension) Current Visit: Yes Status: Acute Assessment and plan: Uncontrolled. 186/78. On losartan 100 and hydralazine 25 TID. Also on hydralazine 10 PRN Q6H. - Restarted carvedilol and cardizem. Qualifiers: Hypertension type: essential hypertension Qualified Code(s): I10 - Essential (primary) hypertension (7) DM2 (diabetes mellitus, type 2) Current Visit: Yes Status: Acute Assessment and plan: A1c of 7.9. Glucose of 97. On insulin SS and levemir 30 U HS. Qualifiers: Diabetes mellitus [employer] insulin use: with halfway use Diabetes mellitus complication status: without complication Qualified Code(s): E11.9 - Type 2 diabetes mellitus without complications; Z79.4 - jail (current) use of insulin (8) Hypomagnesemia Current Visit: Yes Status: Acute Assessment and plan: Magnesium level at 1.4. - 400 Magnesium oxide PO daily. (9) HLD (hyperlipidemia) Current Visit: Yes Status: Acute Assessment and plan: On Statin. Qualifiers: Hyperlipidemia type: pure hyperglyceridemia Qualified Code(s): E78.1 - Pure hyperglyceridemia (10) DVT prophylaxis Current Visit: Yes Status: Acute Assessment and plan: On eliquis. - Subjective Interval history: When seen today patient denies any chest pain, shortness of breath, syncope, lightheadedness, dizziness, nausea, vomiting, fever, cough, abdominal pain, diarrhea, melena, or hematochezia. - Constitutional Vitals: Temp Pulse Resp BP Pulse Ox 98.7 F 70 17 178/80 94 03/14/18 11:49 03/14/18 11:49 03/14/18 11:49 03/14/18 11:49 03/14/18 11:49 General appearance: Present: mild distress, A&O X 3, answers questions appropriately - Respiratory Respiratory exam: Present: CTAB. Absent: accessory muscle use, rales, rhonchi, wheezes - Cardiovascular Cardiovascular exam: Present: RRR, +S1, +S2. Absent: diastolic murmur, gallop, rubs, systolic murmur - GI/Abdominal GI/Abdominal exam: Present: normal bowel sounds, soft, no peritoneal signs. Absent: distended, tenderness - Extremities Exam Extremities exam: Present: warm, radial pulses palpable and symmetrical. Absent: calf tenderness, cyanotic, pedal edema Internal Medicine: Result - Labs CBC & Chem 7: 03/14/18 03:51 03/14/18 03:51 Labs: Short CBC 03/14/18 Range/Units 03:51 WBC 6.7 (4.3-11.1) K/mcL Hgb 12.4 L (12.9-16.9) g/dL Hct 37.5 (37.5-50.1) % Plt Count 185 (140-400) K/mcL BMP 03/14/18 03:51 Sodium 140 Potassium 3.8 Chloride 106 Carbon Dioxide 26 BUN 21 Creatinine 1.00 Glucose 97 Calcium 9.3 Cardiac Enzymes 03/13/18 03/13/18 Range/Units 14:31 20:08 Troponin I < 0.03 < 0.03 (< 0.04) ng/mL - Impressions Impressions Brain MRI 03/13/18 15:40 IMPRESSION: No acute infarct. D/ / Gregory Flores MD / Gregory Flores MD Interpreting Provider: Gregory Flores MD Echocardiogram 03/13/18 15:49 Impressions: LVEF 60-65%. Atypical septal motion due to BBB. Definity echo contrast was used. Moderate left ventricular diastolic dysfunction. Normal right ventricular structure and function. Mild mitral regurgitation. No pulmonary hypertension based on TR signal obtained. Left Ventricular Wall Motion: Rest Echo Findings All wall segments showed normal motion. Findings: Study Quality * Technically challenging due to body habitus. ECG Findings * Sinus rhythm with BBB. Left Ventricle * LVEF 60-65%. * Moderate left ventricular diastolic dysfunction. * Definity echo contrast was used. * Normal LV chamber size and wall thickness. Right Ventricle * Normal right ventricular structure and function. Left Atrium * Left atrium is not well visualized. Right Atrium * Normal right atrial size. Mitral Valve * Mild mitral annular calcification * No mitral stenosis. * Mitral valve not well visualized. * Mild mitral regurgitation. Aortic Valve * No aortic regurgitation. * Aortic valve not well visualized. * No aortic stenosis. Tricuspid Valve * Tricuspid valve not well visualized. * Trace tricuspid regurgitation. Pulmonic Valve * Pulmonic valve is not well visualized. * No pulmonic stenosis. * No pulmonic regurgitation. Pulmonary Artery * Pulmonary artery not well visualized. Aorta * Normally sized aortic root. Pericardium * There is no pericardial effusion present. Interatrial Septum * Interatrial septum not well evaluated. IVC * The IVC is not well evaluated. Consult Discharge Plan - Plan Referrals: Glenn Saucedo MD [Primary Care Provider] - 03/20/18 11:00 am () <[email or web address] - Last Filed: 03/14/18 15:05> Date of Encounter: 03/14/18 - Assessment and plan (1) Syncope Current Visit: Yes Status: Acute Qualifiers: Syncope type: unspecified Qualified Code(s): R55 - Syncope and collapse (2) Symptomatic bradycardia Current Visit: No Status: Acute (3) Seizure Current Visit: Yes Status: Acute (4) Paroxysmal A-fib Current Visit: Yes Status: Deleted (5) CAD (coronary artery disease) Current Visit: Yes Status: Acute Qualifiers: Coronary Disease-Associated Artery/Lesion type: hughes artery [place] vs. transplanted heart: hughes heart Associated angina: without angina Qualified Code(s): I25.10 - Atherosclerotic heart disease of hughes coronary artery without angina pectoris (6) HTN (hypertension) Current Visit: Yes Status: Acute Qualifiers: Hypertension type: essential hypertension Qualified Code(s): I10 - Essential (primary) hypertension (7) DM2 (diabetes mellitus, type 2) Current Visit: Yes Status: Acute Qualifiers: Diabetes mellitus [employer] insulin use: with halfway use Diabetes mellitus complication status: without complication Qualified Code(s): E11.9 - Type 2 diabetes mellitus without complications; Z79.4 - jail (current) use of insulin - Constitutional Vitals: Temp Pulse Resp BP Pulse Ox 98.7 F 70 17 178/80 94 03/14/18 11:49 03/14/18 11:49 03/14/18 11:49 03/14/18 11:49 03/14/18 11:49 Internal Medicine: Result - Labs CBC & Chem 7: 03/14/18 03:51 03/14/18 03:51 Labs: Short CBC 03/14/18 Range/Units 03:51 WBC 6.7 (4.3-11.1) K/mcL Hgb 12.4 L (12.9-16.9) g/dL Hct 37.5 (37.5-50.1) % Plt Count 185 (140-400) K/mcL BMP 03/14/18 03:51 Sodium 140 Potassium 3.8 Chloride 106 Carbon Dioxide 26 BUN 21 Creatinine 1.00 Glucose 97 Calcium 9.3 Cardiac Enzymes 03/13/18 03/13/18 Range/Units 14:31 20:08 Troponin I < 0.03 < 0.03 (< 0.04) ng/mL - Impressions Impressions Brain MRI 03/13/18 15:40 IMPRESSION: No acute infarct. D/ / Gregory Flores MD / Gregory Flores MD Interpreting Provider: Gregory Flores MD Echocardiogram 03/13/18 15:49 Impressions: LVEF 60-65%. Atypical septal motion due to BBB. Definity echo contrast was used. Moderate left ventricular diastolic dysfunction. Normal right ventricular structure and function. Mild mitral regurgitation. No pulmonary hypertension based on TR signal obtained. Left Ventricular Wall Motion: Rest Echo Findings All wall segments showed normal motion. Findings: Study Quality * Technically challenging due to body habitus. ECG Findings * Sinus rhythm with BBB. Left Ventricle * LVEF 60-65%. * Moderate left ventricular diastolic dysfunction. * Definity echo contrast was used. * Normal LV chamber size and wall thickness. Right Ventricle * Normal right ventricular structure and function. Left Atrium * Left atrium is not well visualized. Right Atrium * Normal right atrial size. Mitral Valve * Mild mitral annular calcification * No mitral stenosis. * Mitral valve not well visualized. * Mild mitral regurgitation. Aortic Valve * No aortic regurgitation. * Aortic valve not well visualized. * No aortic stenosis. Tricuspid Valve * Tricuspid valve not well visualized. * Trace tricuspid regurgitation. Pulmonic Valve * Pulmonic valve is not well visualized. * No pulmonic stenosis. * No pulmonic regurgitation. Pulmonary Artery * Pulmonary artery not well visualized. Aorta * Normally sized aortic root. Pericardium * There is no pericardial effusion present. Interatrial Septum * Interatrial septum not well evaluated. IVC * The IVC is not well evaluated. - Attending Attestation I examined this patient and my medical decision-making was reviewed with the Resident Physician Dr. Guardado. I agree with the documented findings, disposition and treatment plan as described except to the extent set forth b elneal. Mr. Davidson is a 77 year old male with known past medical history of COPD, hypertension, hyperlipidemia, diabetes type II, paroxysmal a fib on eliquis for anticoagulation, who follows with chef concierge Dr. Saxena who recently increased his Cardizem to 240 mg, now he was brought into the [place] emergency room by family stating that he had syncopal episode this morning while he was drinking coffee. Patient stated he felt lightheaded, dizzy and diaphoretic before he passed out. His initial EKG showed junctional rhythm with heart rate of 34 to the right bundle branch block patient was given atropine and IV fluid bolus. Patient had CT of the head done after he returned back from the CT scan he had another brief episode of he became very pale, his eyes rolled back and he was unresponsive for a few seconds. At that time his heart rate was in 70s blood pressure was 119 / 68. The ER doctor talked to our on-call chef concierge Dr. Dominguez, who believes that patient had junctional bradycardia because of recent increasing dose of Cardizem on top of his regular Coreg. 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 His serial troponin came back is negative. His echocardiogram showed preserved LVEF 60 to 60% atypical septal motion due to bundle branch block. Moderate left ventricle diastolic dysfunction noticed. He denied any CP. Gen: A, A< O x3 Chest: Diminished BS b/l, no crackles Heart: S1S2+ RRR No murmurs a/p 1. Acute syncope 2. Symptomatic bradycardia 3. 1st degree AV block improved Talked to his Card Dr. Saxena, he inc his Cardizem earlier for BP control, however due to his BBB / Conduction delay problems he is high risk pt so we decided to stop Cardizem completely and increased Hydralazine to 50mg TID.. If BP still not controlled will use Norvasc 4. Seizure like activity MRI - no acute abnormality noticed waiting on EEG appreciate neurology recommendations
[2018-03-14] MEDS ORDERED: Diltiazem CD (24hr) 120 MG CAPSULE PO SCH (12:00)
--- NOTE | 2018-03-14 16:14 | EEG/EMG/Oth Biometrics Report ---
EEG Procedure Report EEG Procedure: Routine EEG Procedure Note: This is a routine 21 channel digital EEG performed utilizing 10- 20 international electrode placement system. FINDINGS: Patient has a predominant waking background frequency that is average voltage 8 to 10 Hertz alpha activity in the posterior region, normal amplitude symmetrical over the both hemispheres reactive to eyes opening and closing record continued to show alpha activity intermixed with some theta off and on, no abnormal activity recorded, predominantly no evidence of any spike wave discharges or any lateralizing abnormalities, Photic stimulation and hyperventilation did not produce any convulsive response. Intermittent EMG artifacts were noted. Stage II sleep was not achieved. Impression: Normal awake drowsy electroencephalogram. No epileptiform discharges or any other paroxysmal activities noted. ( Please note that normal EEG does not exclude the diagnosis of seizures or epilepsy, clinical correlation is suggested)
[2018-03-14] MEDS: *HR* HYDROcodone/Acet 5/325 mg TABLET PO PRN (19:52)
[2018-03-14] MEDS: Apixaban 5 MG TABLET PO SCH (19:52)
[2018-03-14] MEDS ORDERED: Insulin DETEMIR 100 UNIT/ML X5UNITS SQ SCH (21:00)
[2018-03-15] MEDS: Tiotropium 18 MCG inhalation IH SCH (08:01)
[2018-03-15] MEDS: Insulin LISPRO 300 UNITS/3 ML VIAL SQ SCH ×2 (08:48→10:59)
[2018-03-15] MEDS: Apixaban 5 MG TABLET PO SCH (08:51)
[2018-03-15] MEDS: Pregabalin 75 MG CAPSULE PO SCH (08:55)
[2018-03-15] MEDS: Magnesium Oxide 400 MG TABLET PO SCH (08:55)
[2018-03-15] MEDS ORDERED: Diltiazem CD (24hr) 120 MG CAPSULE PO SCH (09:00)
[2018-03-15] MEDS ORDERED: amLODIPine 5 MG TABLET PO SCH (09:00)
[2018-03-15] MEDS ORDERED: hydrALAZINE 25 MG TABLET PO SCH (09:00)
--- NOTE | 2018-03-15 09:39 | Cardiology Progress Note ---
Date of Encounter: 03/15/18 Time of Encounter: 08:15 Assessment and Plan (1) Symptomatic bradycardia Status: Acute Yesterday had an episode with symptomatic bradycardia. He is on carvedilol 12.5 mg and diltiazem 240 at home. His EKG showed junctional rhythm with heart rate in the 30s upon EMS presentation. Holding diltiazem. Continue carvedilol and consider adding norvasc for blood pressure control. (2) Syncope Status: Acute Reported one syncopal episode at home yesterday and during that episode he was noted to be bradycardic. He noted two previous syncopal episodes last year in [place] and during the last episode his glucose was noted to be in high 400s. During this episode his home glucose was above 250. Neurology is working up the syncope given he also had witnessed tremor and shakiness associated with this episode. -Further recommendations from neurology Qualifiers: Syncope type: unspecified Qualified Code(s): R55 - Syncope and collapse (3) HTN (hypertension) Status: Acute Chronic hypertension. Notes history since the age of 20. Currently he is only on losartan. Consider restarting home HCTZ. Qualifiers: Hypertension type: essential hypertension Qualified Code(s): I10 - Essential (primary) hypertension (4) Afib Status: Chronic History of paroxysmal atrial fibrillation. Sinus rhythm at this time. Was on eliquis and rate control medications at home. Two weeks ago his diltiazem dose was increased to 240. At presentation to the hospital his rhythm was regular although he was bradycardic. -Restart home carvedilol -Hold cardizem given first degree -Continue eliquis Qualifiers: Atrial fibrillation type: chronic Qualified Code(s): I48.2 - Chronic atrial fibrillation Discussion w patient/family: The assessment and plan as outlined above was discussed with the patient and/or family members who expressed understanding and agreement. All questions were answered. Thank you for involving us in the care of your patient. Please call with any questions. Subjective Principal diagnosis: Symptomatic bradycardia, syncope and collapse, concern for seizures Interval history: Mr. Davidson was seen at bedside this morning. He was resting comfortably. He d enied any more syncopal episodes. He denied fever, chills, nausea, emesis, shortness of breath or chest pain. Objective Vital Signs, Last 4 Hours Temp Pulse Resp BP Pulse Ox 03/15/18 08:02 18 97 03/15/18 07:49 97.6 F 63 18 193/82 97 General: Conversant, No Apparent Distress HEENT: Atraumatic, Normocephaly, Mucus Membranes Moist Neck: No JVD, Normal carotid pulses Cardiac: Reg Rate and Rhythm, Normal S1 and S2, No Murmur Lungs: Normal Breath Sounds, No Wheeze, Rales, Rhonchi Neuro: Alert and responsive, No focal deficits noted Abdomen: Soft, Non-Tender Skin: No rashes noted on visualized skin Musculoskeletal: No Chest Wall Tenderness Extremities: No Edema, Normal Pulses Results 03/14/18 03:51 03/14/18 03:51 Lab Results 03/15/18 08:47 Magnesium 1.7 Consult Discharge Plan - Plan Instructions: Hydralazine (By mouth), Amlodipine (By mouth), Syncope (DC) Referrals: Vito Saxena MD [Partnered Physician] - Glenn Saucedo MD [Primary Care Provider] - 03/20/18 11:00 am () Prescriptions: amLODIPine [Norvasc] 10 mg PO DAILY 30 Days #60 tablet hydrALAZINE [HydrALAZINE] 75 mg PO TID 30 Days #270 tablet
--- NOTE | 2018-03-15 10:04 | Discharge Summary ---
<OraliaDeon stevenson - Last Filed: 03/15/18 10:02> - NOTES TO OUTPATIENT PROVIDER Notes to Outpatient Provider: Patient had his Cardizem medication was discontinued because we believe it is what caused patient's syncopal episode. He is to stop taking his Cardizem at home and substitute instead with Norvasc 10 mg by mouth daily. We also added hydralazine 75 mg by mouth 3 times a day to take for his blood pressure, for which she should continue at home. Patient can continue his home medication of carvedilol. Orders not resulted at time of discharge: Pending orders 03/13/18 14:16 EKG [ECG 12 lead ECG] [ECG] Routine Date of Encounter: 03/15/18 Time of Encounter: 09:00 - Discharge Diagnosis (1) Syncope Priority: Primary Status: Acute Qualifiers: Syncope type: unspecified Qualified Code(s): R55 - Syncope and collapse (2) Symptomatic bradycardia Priority: Primary Status: Acute (3) Syncopal seizure Priority: Secondary Status: Acute (4) Paroxysmal A-fib Priority: Secondary Status: Acute (5) CAD (coronary artery disease) Priority: Primary Status: Acute Qualifiers: Coronary Disease-Associated Artery/Lesion type: [place] artery [place] vs. transplanted heart: [place] heart Associated angina: without angina Qualified Code(s): I25.10 - Atherosclerotic heart disease of [place] coronary artery w ithout angina pectoris (6) HTN (hypertension) Priority: Primary Status: Acute Qualifiers: Hypertension type: essential hypertension Qualified Code(s): I10 - Essential (primary) hypertension (7) DM2 (diabetes mellitus, type 2) Priority: Primary Status: Acute Qualifiers: Diabetes mellitus terminal manager insulin use: with terminal manager use Diabetes mellitus complication status: without complication Qualified Code(s): E11.9 - Type 2 diabetes mellitus without complications; Z79.4 - exterminator helper (current) use of insulin (8) Hypomagnesemia Priority: Primary Status: Resolved (9) HLD (hyperlipidemia) Priority: Primary Status: Acute Qualifiers: Hyperlipidemia type: pure hyperglyceridemia Qualified Code(s): E78.1 - Pure hyperglyceridemia (10) DVT prophylaxis Priority: Primary Status: Acute Hospital course: Mr. Davidson is a 77 M with a PMH of COPD, hypertension, hyperlipidemia, diabetes type II, paroxysmal A-fib on eliquis that presented for a syncopal episode on 03/13/18 while drinking coffee. He was brought into [place] ED. Patient recently had his Cardizem increased to [address] Saxena. Patient stated he felt lightheaded, dizzy and diaphoretic before he passed out. It was replaced by his family members they noticed patient had some tremors, shakiness and his opportunism lower extremities concerning for possible convulsions. The whole episode lasted at least more than 10 minutes. Patients HR was in the 30s after he was found by the EMS. His initial EKG showed junctional rhythm with heart rate of 34 to the right bundle branch block patient was given atropine and IV fluid bolus. CT of the head revealed no acute abnormalities. After he returned back from the CT scan he had another brief episode of he became very pale, his eyes rolled back and he was unresponsive for a few seconds. At that time his heart rate was in 70s blood pressure was 119 / 68. The ER doctor talked to our on-call car customizer Dr. Dominguez, who believes that patient had junctional bradycardia because of recent increasing dose of Cardizem on top of his regular Coreg. During his hospital stay patient's Cardizem was put on hold. Patient's EKG showed primary AV block. Serial EKGs obtained daily showed an improvement of patient's IA interval as well as his heart rate. Given that patient had convulsions upon his syncopal episode and EEG was obtained which showed to be normal. Patient had uncontrolled high blood pressure during his stay at the hospital. He was put on 100 mg losartan and hydralazine 3 times a day and when necessary. He subsequently had Norvasc as a substitute for his Cardizem. His blood pressure has improved today to SBP of 118. When seen today patient denied any chest pain or shortness of breath. Denied any nausea or vomiting. Denied any abdominal pain. Denied any headache, dizziness, or syncope. Patient will be discharged home today. He is to follow-up with his car customizer Dr. Saxena and his PCP within one week. Warned patient that if he experiences any chest pain, shortness of breath, dizziness, or lightheadedness to report immediately back to the ER. - Time Spent with Patient Total time spent providing and/or coordinating discharge services: Less than 30 minutes - Discharge Medications Prescriptions: amLODIPine [Norvasc] 10 mg PO DAILY 30 Days #60 tablet hydrALAZINE [HydrALAZINE] 75 mg PO TID 30 Days #270 tablet Home Medications: Albuterol Sulfate [Ventolin Hfa] 2 puff IH Q4H PRN 03/13/18 [History] Apixaban [Eliquis] 5 mg PO BID 03/13/18 [History] Atorvastatin [Lipitor] 40 mg PO DAILY 03/13/18 [History] Carvedilol 12.5 mg PO BID 03/13/18 [History] FLUoxetine HCl [Prozac] 20 mg PO DAILY 03/13/18 [History] Insulin Glargine,Hum.rec.anlog [Lantus Solostar] 70 unit SQ HS 03/13/18 [History] Losartan/Hydrochlorothiazide [Losartan-Hctz 100-25 mg Tab] 1 tab PO DAILY 03/13/18 [History] Metformin HCl [Fortamet] 1,000 mg PO BID 03/13/18 [History] Pregabalin [Lyrica] 150 mg PO BID 03/13/18 [History] Tiotropium [Spiriva] 18 mcg IH DAILY 03/13/18 [History] GlipiZIDE XL (24 HR) [Glucotrol XL] 10 mg PO DAILY 03/14/18 [History] Vitamin B Complex [Balanced B-50] 1 tab PO DAILY 03/14/18 [History] amLODIPine [Norvasc] 10 mg PO DAILY 30 Days #60 tablet 03/15/18 [Rx] hydrALAZINE [HydrALAZINE] 75 mg PO TID 30 Days #270 tablet 03/15/18 [Rx] Allergies/Adverse Reactions: Allergy/AdvReac Type Severity Reaction Status Date / Time Iodinated Contrast- Oral and Allergy Hives Verified 03/14/18 08:09 IV Dye Date of admission: 03/13/18 13:43 Primary care physician: Glenn Saucedo MD Consults: 03/13/18 15:04 Consult to Cardiology [CONS] Routine Comment: Consulting Provider: Card[facility] Reason for Consult: Symptomatic bradycardia Time Notified: 15:07 Call Completed: Yes Consult to Neurology [CONS] Routine Consulting Provider: Neurology [facility] Reason for Consult: Syncope - ?? Seizure activity Time Notified: 15:06 Call Completed: Yes 03/14/18 11:36 Consult to Interpret Exam [CONS] Routine Consulting Provider: Ruslan Olvera I Consult to Interpret Exam: Interpret EEG Discharging clinician: Deon Guardado Anticipated date of discharge: 03/15/18 - Constitutional Vitals: Temp Pulse Resp BP Pulse Ox 97.6 F 63 18 193/82 97 03/15/18 07:49 03/15/18 07:49 03/15/18 08:02 03/15/18 07:49 03/15/18 08:02 General appearance: Present: mild distress, A&O X 3, answers questions appropriately - Respiratory Respiratory exam: Present: CTAB. Absent: accessory muscle use, rales, rhonchi, wheezes - Cardiovascular Cardiovascular exam: Present: RRR, +S1, +S2, systolic murmur - GI/Abdominal GI/Abdominal exam: Present: normal bowel sounds, soft, no peritoneal signs. Absent: distended, tenderness - Extremities Exam Extremities exam: Present: warm, radial pulses palpable and symmetrical. Absent: calf tenderness, cyanotic, pedal edema - Skin Skin exam: Present: dry, intact - Patient Status Disposition: Home, Self-Care Functional capacity at discharge: independent ambulation Overall status at discharge: patient is progressing back to baseline - Discharge Instructions Instructions: Hydralazine (By mouth), Amlodipine (By mouth), Syncope (DC) Follow Up With: Glenn Saucedo MD [Primary Care Provider] - 03/20/18 11:00 am () Vito Saxena MD [Partnered Physician] - - Diet and Activity Activity: resume usual activities as tolerated Diet: diabetic diet, low salt diet <Thallapaneni,Rambabu - Last Filed: 03/15/18 11:13> Orders not resulted at time of discharge: Pending orders 03/13/18 14:16 EKG [ECG 12 lead ECG] [ECG] Routine 03/15/18 10:02 EKG [ECG 12 lead ECG] [ECG] Routine Date of Encounter: 03/15/18 - Discharge Diagnosis (1) Syncope Status: Acute Qualifiers: Syncope type: unspecified Qualified Code(s): R55 - Syncope and collapse (2) Symptomatic bradycardia Status: Acute (3) Seizure Status: Acute (4) Paroxysmal A-fib Status: Deleted (5) CAD (coronary artery disease) Status: Acute Qualifiers: Coronary Disease-Associated Artery/Lesion type: [place] artery [place] vs. transplanted heart: [place] heart Associated angina: without angina Qualified Code(s): I25.10 - Atherosclerotic heart disease of [place] coronary artery without angina pectoris (6) HTN (hypertension) Status: Acute Qualifiers: Hypertension type: essential hypertension Qualified Code(s): I10 - Essential (primary) hypertension (7) DM2 (diabetes mellitus, type 2) Status: Acute Qualifiers: Diabetes mellitus terminal manager insulin use: with fpc use Diabetes mellitus complication status: without complication Qualified Code(s): E11.9 - Type 2 diabetes mellitus without complications; Z79.4 - exterminator helper (current) use of insulin Hospital course: Mr. Davidson is a 77 year old male - Time Spent with Patient Total time spent providing and/or coordinating discharge services: Date of admission: 03/13/18 13:43 Primary care physician: Glenn Saucedo MD Consults: 03/13/18 15:04 Consult to Cardiology [CONS] Routine Comment: Consulting Provider: [facility] Reason for Consult: Symptomatic bradycardia Time Notified: 15:07 Call Completed: Yes Consult to Neurology [CONS] Routine Consulting Provider: [facility] Reason for Consult: Syncope - ?? Seizure activity Time Notified: 15:06 Call Completed: Yes 03/14/18 11:36 Consult to Interpret Exam [CONS] Routine Consulting Provider: Ruslan Olvera I Consult to Interpret Exam: Interpret EEG - Constitutional Vitals: Temp Pulse Resp BP Pulse Ox 98.1 F 80 20 118/63 94 03/15/18 10:21 03/15/18 10:21 03/15/18 10:21 03/15/18 10:21 03/15/18 10:21 - Attending Attestation I examined this patient and my medical decision-making was reviewed with the Resident Physician Dr. Guardado. I agree with the documented findings, disposition and treatment plan as described except to the extent set forth below. Mr. Davidson is a 77 year old male with known past medical history of COPD, hypertension, hyperlipidemia, diabetes type II, paroxysmal a fib on eliquis for anticoagulation, who follows with car customizer Dr. Saxena who recently increased his Cardizem to 240 mg, now he was brought into the [place] emergency room by family stating that he had syncopal episode this morning while he was drinking coffee. Patient stated he felt lightheaded, dizzy and diaphoretic before he passed out. His initial EKG showed junctional rhythm with heart rate of 34 to the right bundle branch block patient was given atropine and IV fluid bolus. Patient had CT of the head done after he returned back from the CT scan he had another brief episode of he became very pale, his eyes rolled back and he was unresponsive for a few seconds. At that time his heart rate was in 70s blood pressure was 119 / 68. The ER doctor talked to our on-call car customizer Dr. Dominguez, who believes that patient had junctional bradycardia because of recent increasing dose of Cardizem on top of his regular Coreg. Patient was admitted in the hospital and placed him on cardiac cath technologist. His serial troponin came back is negative. His echocardiogram showed preserved LVEF 60 to 60% atypical septal motion due to bundle branch block. Moderate left ventricle diastolic dysfunction noticed. He denied any CP. Gen: A, A, O x3 Chest: Diminished BS b/l, no crackles Heart: S1S2+ RRR No murmurs a/p 1. Acute syncope 2. Symptomatic bradycardia 3. 1st degree AV block improved Talked to his Card Dr. Saxena, he inc his Cardizem earlier for BP control, however due to his BBB / Conduction delay problems he is high risk pt so we decided to stop Cardizem completely and increased Hydralazine to 75 mg TID BP still elevated so placed him on Norvasc. His BP much better now with current regimen so will d/c him home in stable condition today. 4. Seizure like activity MRI - no acute abnormality noticed EEG - no seizure activity appreciate neurology recommendations talked to patient and his daughter at bedside and explained to them about current care as well as discharge instructions.
--- NOTE | 2018-03-15 10:22 | Neurology Progress Note ---
<Ruslan Olvera Maribell - Last Filed: 03/15/18 11:32> Date of Encounter: 03/15/18 Assessment and Plan (1) Symptomatic bradycardia Status: Acute (2) Syncope Status: Acute Patient is stable no neurological issues suggest continue workup for symptomatic bradycardia EEG is been negative no evidence of any seizures no further recommendation from neurology standpoint neurology will sign off call if needed Qualifiers: Syncope type: unspecified Qualified Code(s): R55 - Syncope and collapse (3) Convulsions Status: Acute Qualifiers: Convulsion type: unspecified Qualified Code(s): R56.9 - Unspecified c onvulsions Objective - Constitutional Vitals: Temp Pulse Resp BP Pulse Ox 98.1 F 80 20 118/63 94 03/15/18 10:21 03/15/18 10:21 03/15/18 10:21 03/15/18 10:21 03/15/18 10:21 Results - Laboratory Findings CBC and BMP: 03/14/18 03:51 03/14/18 03:51 Abnormal lab findings: Abnormal lab results Hgb 12.4 g/dL (12.9-16.9) L 03/14/18 03:51 POC Glucose 297 mg/dL (70-99) H 03/14/18 19:49 Hemoglobin A1c 7.9 % (-5.6) H 03/13/18 16:06 Triglycerides 171 mg/dL (< 150) H 03/14/18 03:51 VLDL Cholesterol, Calc 34 mg/dL (< 31) H 03/14/18 03:51 HDL Cholesterol 35 mg/dL (40-59) L 03/14/18 03:51 TSH 0.090 mcIU/mL (0.340-5.600) L 03/13/18 16:06 Consult Discharge Plan - Plan Instructions: Hydralazine (By mouth), Amlodipine (By mouth), Syncope (DC) Referrals: Vito Saxena MD [Partnered Physician] - Glenn Saucedo MD [Primary Care Provider] - 03/20/18 11:00 am () Prescriptions: amLODIPine [Norvasc] 10 mg PO DAILY 30 Days #60 tablet hydrALAZINE [HydrALAZINE] 75 mg PO TID 30 Days #270 tablet <Abdirahman Quintanilla - Last Filed: 03/15/18 12:51> Date of Encounter: 03/15/18 Time of Encounter: 10:21 Assessment and Plan (1) Syncope Status: Acute Presented with syncope collapse and convulsions. Neurology consulted for evaluation of convulsions. Patient had symptomatic bradycardia on admission. Syncope induced convulsions with symptomatic bradycardia. EEG and MRI were negative and did not have any acute findings. Next no return of syncope or seizure-like events. Stable from a neurological perspective. Neurology will sign off. Qualifiers: Syncope type: unspecified Qualified Code(s): R55 - Syncope and collapse (2) Convulsions Status: Acute Qualifiers: Convulsion type: unspecified Qualified Code(s): R56.9 - Unspecified convulsions (3) Symptomatic bradycardia Status: Acute Subjective Principal diagnosis: Symptomatic bradycardia, syncope and collapse, concern for seizures Interval history: Mr. Davidson is a 77 year old male with a PMH of COPD, HLD, HTN, DM II, A-fib (on eliquis, cardizem). He presented with symptomatic bradycardia heart rate in 30s. During syncopal event the patient was noted to have compulsive activity. Neurology was consulted for syncope and concern for seizures. No return of syncope or convulsive activity. Objective - Constitutional Vitals: Temp Pulse Resp BP Pulse Ox 97.6 F 63 18 193/82 97 03/15/18 07:49 03/15/18 07:49 03/15/18 08:02 03/15/18 07:49 03/15/18 08:02 Exam: Oriented to person, place, time and situation. Gait and station normal, able to ambulate around the room without assistance. No gait abnormalities or spasticity. Bilateral arm and leg strength 5/5 Cranial nerves II-12 grossly intact Results - Laboratory Findings CBC and BMP: 03/14/18 03:51 03/14/18 03:51 Abnormal lab findings: Abnormal lab results Hgb 12.4 g/dL (12.9-16.9) L 03/14/18 03:51 POC Glucose 297 mg/dL (70-99) H 03/14/18 19:49 Hemoglobin A1c 7.9 % (-5.6) H 03/13/18 16:06 Triglycerides 171 mg/dL (< 150) H 03/14/18 03:51 VLDL Cholesterol, Calc 34 mg/dL (< 31) H 03/14/18 03:51 HDL Cholesterol 35 mg/dL (40-59) L 03/14/18 03:51 TSH 0.090 mcIU/mL (0.340-5.600) L 03/13/18 16:06
[2018-03-15 10:23] VITALS: BP 118/63
--- NOTE | 2018-03-16 13:04 | Electrocardiograph Report ---
[address] [address] Test Date: 2018-03-14 Pat Name: Heather Davidson Department: 113 Room: 3B22 Gender: M Pharmaceutical Sales Specialist: : [id number] Requested By: Deon Guardado Order Number: [id number] Reading MD: Sloane Saxena Measurements Intervals [place] Rate: 72 P: 65 OK: 296 QRS: -47 QRSD: 163 T: 116 QT: 421 QTc: 445 Interpretive Statements SINUS RHYTHM WITH FIRST DEGREE AV BLOCK MARKED LEFT AXIS DEVIATION LEFT BUNDLE BRANCH BLOCK Electronically Signed On 03-16-2018 13:03:10 EST by Sloane Saxena
== END 2018-03-15 11:22 | disposition home or self-care (01) ==
LOC: 3BNU → SUATTDRO 13:43
PROVIDERS: ADMIT Internal Medicine; ATTEND Family Medicine

== ENCOUNTER 2018-08-12 10:31 | Observation (INO) ==
--- NOTE | 2018-08-12 11:19 | Emergency Department Note ---
Disposition Clinical Impression: Syncope and collapse, Dehydration Afib Qualifiers: Atrial fibrillation type: chronic Qualified Code(s): I48.2 - Chronic atrial fibrillation Disposition: Admitted As Inpatient Condition: Fair Time of Disposition: 14:49 General Adult HPI - General Chief complaint: ED Syncope Stated complaint: syncope, hit head Time Seen by Provider: 08/12/18 10:49 Source: patient Limitations: no limitations Nursing Notes Reviewed: Yes Vital Signs Reviewed: Yes - History of Present Illness Pain Scale: 8 - Related Data Home Medications Medication Instructions Recorded Confirmed Albuterol Sulfate [Ventolin Hfa] 2 puff IH Q4H PRN 03/13/18 08/12/18 Apixaban [Eliquis] 5 mg PO BID 03/13/18 08/12/18 Atorvastatin [Lipitor] 40 mg PO DAILY 03/13/18 08/12/18 Carvedilol 12.5 mg PO BID 03/13/18 08/12/18 FLUoxetine HCl [Prozac] 20 mg PO DAILY 03/13/18 08/12/18 Insulin Glargine,Hum.rec.anlog 70 unit SQ HS 03/13/18 08/12/18 [Lantus Solostar] Losartan/Hydrochlorothiazide 1 tab PO DAILY 03/13/18 08/12/18 [Losartan-Hctz 100-25 mg Tab] Tiotropium [Spiriva] 18 mcg IH DAILY 03/13/18 08/12/18 GlipiZIDE XL (24 HR) [Glucotrol XL] 10 mg PO DAILY 03/14/18 08/12/18 Amitriptyline [Elavil] 10 mg PO QPM 08/12/18 08/12/18 Amlodipine Besylate 10 mg PO DAILY 08/12/18 08/12/18 Canagliflozin [Invokana] 300 mg PO DAILY 08/12/18 08/12/18 Cyanocobalamin (Vitamin B-12) 1,000 mcg PO DAILY 08/12/18 08/12/18 [Vitamin B12] Hydralazine HCl 50 mg PO TID 08/12/18 08/12/18 Pregabalin [Lyrica] 150 mg PO BID 08/12/18 08/12/18 Allergies Allergy/AdvReac Type Severity Reaction Status Date / Time Iodinated Contrast- Oral and Allergy Hives Verified 03/29/19 10:22 IV Dye Past Medical History - Past Medical History Medical history: Reports: diabetes, myocardial infarction, hypertension, coronary artery disease, COPD Surgical history: Reports: appendectomy Psychiatric history: Reports: no psych history - Social History Smoking Status: Former smoker Smokeless Tobacco Status: Yes Alcohol use: Reports: occasionally Drug use: Reports: none Physical Exam - General Limitations: no limitations General appearance: alert, in no apparent distress Course Vital Signs Temperature 97.3 F L 08/12/18 10:37 Pulse Rate 63 08/12/18 10:37 Respiratory Rate 16 08/12/18 10:37 Blood Pressure 130/72 08/12/18 10:37 O2 Sat by Pulse Oximetry 94 08/12/18 10:37 Temperature 97.3 F L 08/12/18 10:37 Pulse Rate 56 08/12/18 11:44 Respiratory Rate 18 08/12/18 11:44 Blood Pressure 120/69 08/12/18 11:22 O2 Sat by Pulse Oximetry 98 08/12/18 11:44 Oxygen Delivery Oxygen Delivery Room Air Medical Decision Making - [facility] Narrative Medical decision making narrative: Chest X-Ray 08/12/18 11:09 IMPRESSION: No acute cardiopulmonary disease D/ / Joaquín Austin MD / Joaquín Austin MD Interpreting Provider: Joaquín Austin MD Elbow X-Ray 08/12/18 11:17 IMPRESSION: Mild degenerative changes are seen involving the elbow, without acute osseous fracture, dislocation or joint effusion. D/ / Davis Solo MD / Davis Solo MD Interpreting Provider: Davis Solo MD 1345 hrs.: Discussed with patient and family need for admission. He does not really want to be admitted. But with this syncopal episode with this fall and uncertain etiology I think it is important 8, and be evaluated getting stabilized I feel if he goes home he is at risk to do this again. Family is in agreement with us. He is getting fluids and he is dehydrated here so that could be one of the reasons along with his medications. They are still considering at this time and if they are in agreement we will bring him in through the hospitalist service. 1446 hrs.: Patient is agreed stay in the hospital. Hospitalist is admitted. Family is in agreement with this plan. - Lab Data Result diagrams: 08/12/18 Unknown 08/12/18 Unknown Attestation Statement - Attestation Attestation: This documentation is done with the assistance of Dragon dictation. Despite efforts made to ensure accuracy, there may be inaccuracies in table top tile setter or spelling and typographical errors. I examined this patient and my medical decision-making was reviewed with the Resident Physician. I agree with the documented findings, disposition and treatment plan as described except to the extent set forth below. Patient was seen and evaluated by Dr. Olguin and myself, I agree with his evaluation and management plan, I supervised the care the patient throughout her stay. Patient presents today with family after syncopal episode at home he was walking down the stairs felt lightheaded and dizzy and then passed out. He is only injury says his left elbow is a skin tear there. This apparently is happened in the past. They thought initially it was his medications. We will order a workup on him including a CT x-ray of his elbow labs and then reassess. He may need admission. They are in agreement with plan. No focal deficits on exam here. I reviewed the residents documentation and agree with the residents assessment and plan of care. I have personally had face to face time with the patient. (Brief History, Brief Exam, and MDM) I personally supervised and was present for the alexander/critical portions of the following procedures completed by the resident: EKG was read and interpreted by the ER resident, under my supervision, I agree with her interpretation.
[2018-08-12] MEDS ORDERED: 0.9 % Sodium Chloride 1,000 ML IVC ONE (11:22)
[2018-08-12 11:39] LABS: Basophils % 0.4 %; Hematocrit 40.8 % (37.5-50.1); Immature Granulocytes % 0.2 % (0-4); Lymphocytes % 18.5 %; Mean Corpuscular HGB Conc 31.9 g/dL (31.6-35.5); Mean Corpuscular Volume 87.7 fL (83.0-100.0); Mean Platelet Volume 12.7 fL (9.4-12.4); Monocytes % 10.3 %; Platelet Count 177 K/mcL (140-400); Red Blood Count 4.65 M/mcL (4.19-5.50); Red Cell Distribution Width 13.7 % (11.5-14.5); Segmented Neutrophils % 70.6 %; White Blood Count 5.6 K/mcL (4.3-11.1)
[2018-08-12 11:40] LABS: Monocytes # 0.6 K/mcL (0.0-1.3)
[2018-08-12 12:01] LABS: BUN/Creatinine Ratio 23 (6-26); Blood Urea Nitrogen 36 mg/dL (8-23); Calcium 9.6 mg/dL (8.6-10.3); Carbon Dioxide 25 mEq/L (23-29); Chloride 103 mEq/L (98-107); Glucose 269 mg/dL (70-105); Osmolality,Calculated 302 (280-300); Potassium 4.4 mEq/L (3.5-5.1); Sodium 137 mEq/L (136-145); Troponin I < 0.03 ng/mL (< 0.04); eGFR For African Americans 51 (> 60); eGFR For Non-African Americans 42 (> 60)
--- NOTE | 2018-08-12 13:52 | Emergency Department Note ---
Disposition Clinical Impression: Syncope and collapse, Dehydration Afib Qualifiers: Atrial fibrillation type: chronic Qualified Code(s): I48.2 - Chronic atrial fibrillation Disposition: Admitted As Inpatient Condition: Fair Time of Disposition: 18:41 General Adult HPI - General Chief complaint: ED Syncope Stated complaint: syncope, hit head Time Seen by Provider: 08/12/18 10:49 Source: patient Mode of arrival: ambulatory Limitations: no limitations Nursing Notes Reviewed: Yes Vital Signs Reviewed: Yes - History of Present Illness HPI Narrative: Patient is a 78-year-old male with a past medical history presenting to the ED for evaluation of a syncopal episode. Patient states that over the past few day s he has been outside and the direct sunlight for 6 hours doing yardwork states that today he stood up from a chair on his porch and walked down 2 steps in which she passed out and fell to the ground causing injury to the front aspect of his face he states afterwards he was able to get back on his feet he notified his daughter who lives with him and they brought the patient in for evaluation for squad. He states in the past she has had similar episodes which they thought were due to his medications for his atrial fibrillation. He denies any presyncopal symptoms of chest pain, dyspnea or palpitations. A symptomatically now. Pain Scale: 8 - Related Data Home Medications Medication Instructions Recorded Confirmed Albuterol Sulfate [Ventolin Hfa] 2 puff IH Q4H PRN 03/13/18 08/12/18 Apixaban [Eliquis] 5 mg PO BID 03/13/18 08/12/18 Atorvastatin [Lipitor] 40 mg PO DAILY 03/13/18 08/12/18 Carvedilol 12.5 mg PO BID 03/13/18 08/12/18 FLUoxetine HCl [Prozac] 20 mg PO DAILY 03/13/18 08/12/18 Insulin Glargine,Hum.rec.anlog 70 unit SQ HS 03/13/18 08/12/18 [Lantus Solostar] Losartan/Hydrochlorothiazide 1 tab PO DAILY 03/13/18 08/12/18 [Losartan-Hctz 100-25 mg Tab] Tiotropium [Spiriva] 18 mcg IH DAILY 03/13/18 08/12/18 GlipiZIDE XL (24 HR) [Glucotrol XL] 10 mg PO DAILY 03/14/18 08/12/18 Amitriptyline [Elavil] 10 mg PO QPM 08/12/18 08/12/18 Amlodipine Besylate 10 mg PO DAILY 08/12/18 08/12/18 Canagliflozin [Invokana] 300 mg PO DAILY 08/12/18 08/12/18 Cyanocobalamin (Vitamin B-12) 1,000 mcg PO DAILY 08/12/18 08/12/18 [Vitamin B12] Hydralazine HCl 50 mg PO TID 08/12/18 08/12/18 Pregabalin [Lyrica] 150 mg PO BID 08/12/18 08/12/18 Allergies Allergy/AdvReac Type Severity Reaction Status Date / Time Iodinated Contrast- Oral and Allergy Hives Verified 05/03/18 10:22 IV Dye All systems ED: reviewed and negative except as stated. Review of Systems: As Per HPI Constitutional: Denies: fever, chills Cardiovascular: Reports: syncope. Denies: chest pain, palpitations, dyspnea on exertion, edema, paroxysmal nocturnal dyspnea Respiratory: Denies: cough, dyspnea, wheezes Gastrointestinal: Denies: abdominal pain, nausea, vomiting Genitourinary: Denies: urgency, dysuria Musculoskeletal: Denies: back pain Integumentary: Reports: other (abrasion to the forehead). Denies: rash Neurological: Denies: headache, weakness, numbness, paresthesias, confusion Past Medical History - Past Medical History Attestation: Yes The following information was validated with the patient. Medical history: Reports: diabetes, myocardial infarction, hypertension, coronary artery disease, COPD Surgical history: Reports: appendectomy Psychiatric history: Reports: no psych history - Social History Smoking Status: Former smoker Smokeless Tobacco Status: Yes Alcohol use: Reports: occasionally Drug use: Reports: none Physical Exam CONSTITUTIONAL: Well-appearing; well-nourished; A&O X3, in no apparent distress, no evidence of shock. HEAD: Normocephalic; No smith sign, raccoon eyes or evidence of CSF drainage. EYES: PERRL, EOMI, no scleral icterus EARS: No hemotympanum or TM rupture, no otorrhea NECK: No tracheal deviation, JVD, or hematoma. Palpation of the posterior cervical spine reveals no tenderness NOSE: The nose is normal in appearance without rhinorrhea, epistaxis, or septal hematoma. MOUTH: Normal with intact dentition CHEST: no chest tenderness with palpation RESP: Normal chest excursion with respiration, no paradoxical motion, subcutaneous emphysema. The breath sounds are clear and equal bilaterally CARD: Regular rhythm, without murmurs, rub or gallop ABD: No distention, ecchymosis, abrasions. Non-tender, soft, without rigidity, rebound or guarding BACK: Nontender. No step-off or deformity. No midline tenderness. PELVIS: No laxity or tenderness with palpation or compression EXT: Good ROM without tenderness, deformity. Pulses 2+ in 4 extremities SKIN: Normal for age and race; warm and dry; no apparent lesions, not pale or diaphoretic. Laceration to the left elbow is a 2cm approximated skin tear. - General Limitations: no limitations General appearance: alert, in no apparent distress Course Course Narrative: Patient's workup revealed an elevated BUNs of 36 as well as a creatinine of 1.60 which appears to be acute. I suspect this is secondary to dehydration from the patient's increased activity out of the sun. His workup otherwise was u nremarkable. The skin tear in his elbow was wrapped with bandaging and does not require suturing at this time. I discussed the patient's case with the hospitalist on-call. Discussed the patient's prior admissions with history of syncope which was suspected to be due to his medications for his atrial fibrillation. 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 Vital Signs Temperature 97.3 F L 08/12/18 10:37 Pulse Rate 63 08/12/18 10:37 Respiratory Rate 16 08/12/18 10:37 Blood Pressure 130/72 08/12/18 10:37 O2 Sat by Pulse Oximetry 94 08/12/18 10:37 Temperature 97.4 F L 08/12/18 14:57 Pulse Rate 55 08/12/18 14:57 Respiratory Rate 16 08/12/18 14:57 Blood Pressure 160/74 08/12/18 14:57 O2 Sat by Pulse Oximetry 96 08/12/18 14:57 Oxygen Delivery Oxygen Delivery Room Air Medical Decision Making - Medical Records Medical records reviewed: Yes I reviewed the patient's medical records. - Lab Data Lab results reviewed: Yes I reviewed the patient's lab results. Result diagrams: 08/12/18 Unknown 08/12/18 Unknown - Radiology Data Radiology results reviewed: Yes I reviewed the patient's radiology results. Chest X-Ray 08/12/18 11:09 IMPRESSION: No acute cardiopulmonary disease. D/ / 08/12/2018 13:12:34 Joaquín Austin MD / deja Interpreting Provider: Joaquín Austin MD Head CT 08/12/18 11:09 IMPRESSION: No acute intracranial abnormality. D/ / 08/12/2018 13:08:24 Sorin Mancuso MD / deja Interpreting Provider: Sorin Mancuso MD Elbow X-Ray 08/12/18 11:17 IMPRESSION: Mild degenerative changes are seen involving the elbow, without acute osseous fracture, dislocation or joint effusion. D/ / Davis Solo MD / Davis Solo MD Interpreting Provider: Davis Solo MD - EKG Data EKG #1 EKG attestation: Yes I reviewed and interpreted this EKG. EKG results narrative: EKG done at 11:20 shows sinus rhythm at a rate of 58 bpm. Normal axis. QRS is widened at 183. QT is increased. QRS widening appears to be chronic when compared to old EKG. No new changes.
[2018-08-12] MEDS ORDERED: Ondansetron 4 MG/2 ML VIAL IVP PRN (15:43)
[2018-08-12] MEDS ORDERED: Naloxone 0.4 MG/ML INJ IVP PRN (15:43)
[2018-08-12] MEDS ORDERED: Dextrose Gel 15 GM/37.5 ML TUBE PO PRN ×2 (15:48)
[2018-08-12] MEDS ORDERED: D5% in Water 1,000 ML IVC PRN (15:48)
[2018-08-12] MEDS ORDERED: *HR* Dextrose 50 % in Water (Syg) 50 ML SYRINGE IVP PRN (15:48)
--- NOTE | 2018-08-12 16:18 | Internal Med History&Physical ---
Date of Encounter: 08/12/18 Time of Encounter: 16:08 Internal Medicine - H&P: HPI Chief complaint: syncope Admitted From: Emergency Dept Plans for Post Hospital Care: Home History of present illness: Mr. Davidson is a 78 year old male with a PMH of DM2, PA, HTN, CAD, COPD, Afib, and hyperlipidemia. Patient reports that he had a recent hospital admission in March for syncope episode, where Cardizem was discontinued. 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 Patient reports that this am he was at breakfast with his friends, where he became dizzy with neck pain. Patient states that he drove himself home, and sat on his porch. The patients states that he was still dizzy, when he arose to walk down the stairs to go into his bedroom to take his blood pressure he "passed out." Patient does not recall how long he was unconscious, but when he woke up he was on the floor. At this time he called his step daughter. Upon arrival to the ER the patients vital signs where stable, elevated renal function, trop neg, EKG unchanged from previous, xRAY OF L elbow: no fractures, CXR: no cardiopulmonary disease, head ct: no acute intracraniel abnormality. Patient became bradycardic in ED, pt admited for dehydration and evaluation after syncopal episode. Code status discussed with the patient, he decided that he did want to be a full code Past Med Surg Social Fam HX - Past Medical History Medical history: diabetes, myocardial infarction, hypertension, coronary artery disease, COPD Psychiatric history: no psych history - Past Surgical History Surgical History: appendectomy Additional surgical history: heart cath - Social History Smoking Status: Former smoker Smokeless Tobacco Status: Yes Alcohol use: none Drug use: none - Family History Father Hx Family Cardiac Disorders: Yes (PA) Hx Family Neurologic Disorders: Yes (CVA) Mother Hx Family Endocrine Disorder: Yes (DM) Internal Medicine - H&P: Meds Albuterol Sulfate [Ventolin Hfa] 2 puff IH Q4H PRN 03/13/18 [History] Apixaban [Eliquis] 5 mg PO BID 03/13/18 [History] Atorvastatin [Lipitor] 40 mg PO DAILY 03/13/18 [History] Carvedilol 12.5 mg PO BID 03/13/18 [History] FLUoxetine HCl [Prozac] 20 mg PO DAILY 03/13/18 [History] Insulin Glargine,Hum.rec.anlog [Lantus Solostar] 70 unit SQ HS 03/13/18 [History] Losartan/Hydrochlorothiazide [Losartan-Hctz 100-25 mg Tab] 1 tab PO DAILY 03/13/18 [History] Tiotropium [Spiriva] 18 mcg IH DAILY 03/13/18 [History] GlipiZIDE XL (24 HR) [Glucotrol XL] 10 mg PO DAILY 03/14/18 [History] Amitriptyline [Elavil] 10 mg PO QPM 08/12/18 [History] Amlodipine Besylate 10 mg PO DAILY 08/12/18 [History] Canagliflozin [Invokana] 300 mg PO DAILY 08/12/18 [History] Cyanocobalamin (Vitamin B-12) [Vitamin B12] 1,000 mcg PO DAILY 08/12/18 [History] Hydralazine HCl 50 mg PO TID 08/12/18 [History] Pregabalin [Lyrica] 150 mg PO BID 08/12/18 [History] Allergy/AdvReac Type Severity Reaction Status Date / Time Iodinated Contrast- Oral and Allergy Hives Verified 05/03/18 10:22 IV Dye All Systems PM: A 10-system review of systems was performed and is negative for pertinent findings except as documented above in the HPI. - Constitutional Constitutional: falls, weakness - EENT Eyes: no change in vision, no discharge, no pain, no photophobia Ears: no ear discharge, no ear pain, no tinnitus Nose, mouth and throat: no dysphagia, no nasal discharge, no neck pain, no sore throat - Cardiovascular Cardiovascular ROS IM: chest pain, syncope - Respiratory Respiratory: no cough, no dyspnea, no wheezing, no excessive phlegm production - Gastrointestinal Gastrointestinal: diarrhea - Musculoskeletal Musculoskeletal ROS IM: neck pain - Integumentary Integumentary IM: no rash, no unusual bruising - Neurological Neurological ROS: dizziness, frequent falls, weakness - Constitutional Vitals: Temp Pulse Resp BP Pulse Ox 97.4 F L 55 16 160/74 96 08/12/18 14:57 08/12/18 14:57 08/12/18 14:57 08/12/18 14:57 08/12/18 14:57 General appearance: Present: A&O X 3 Exam: . - Cardiovascular Cardiovascular exam: Present: bradycardia - GI/Abdominal GI/Abdominal exam: Present: normal bowel sounds - Rectal Rectal exam: Present: fecal impaction - Neurological Exam Neurological exam: Present: alert, oriented X3, strengths equal and symetr throughout - Psychiatric Psychiatric exam: Present: normal affect Internal Med - H&P Results - Labs CBC & Chem 7: 08/12/18 Unknown 08/12/18 Unknown Labs: Short CBC 08/12/18 Range/Units Unknown WBC 5.6 (4.3-11.1) K/mcL Hgb 13.0 (12.9-16.9) g/dL Hct 40.8 (37.5-50.1) % Plt Count 177 (140-400) K/mcL Neutrophils # 4.0 (1.6-8.9) K/mcL BMP 08/12/18 Unknown Sodium 137 Potassium 4.4 Chloride 103 Carbon Dioxide 25 BUN 36 H Creatinine 1.60 H Glucose 269 H Calcium 9.6 Cardiac Enzymes 08/12/18 Range/Units Unknown Troponin I < 0.03 (< 0.04) ng/mL - Impressions ITS Impressions Chest X-Ray 08/12/18 11:09 IMPRESSION: No acute cardiopulmonary disease. D/ / 08/12/2018 13:12:34 Joaquín Austin MD / deja Interpreting Provider: Joaquín Austin MD Head CT 08/12/18 11:09 IMPRESSION: No acute intracranial abnormality. D/ / 08/12/2018 13:08:24 Sorin Mancuso MD / deja Interpreting Provider: Sorin Mancuso MD Elbow X-Ray 08/12/18 11:17 IMPRESSION: Mild degenerative changes are seen involving the elbow, without acute osseous fracture, dislocation or joint effusion. D/ / Davis Solo MD / Davis Solo MD Interpreting Provider: Davis Solo MD - Assessment and Plan (1) Dehydration Current Visit: Yes Status: Acute Assessment and plan: Patient reports that he was previously on metformin, which was discontinued because patient was having loose stools. Patient also is on a diuretic, and has a mild ANN Patient received IV fluid in the ER, will continue to monitor chemistry, blood pressure, and will hold diuretic for now. Will resume once patient returned to his baseline. (2) Syncope and collapse Current Visit: Yes Status: Acute Assessment and plan: Patient reports that he has had prior falls, related to recent medication changes. Patient is on multiple antihypertensives as well as diaretics, lyrica, unsure of medication dosages and frequencies. Suspect that patient may not be taking medications correctly, which may be causing syncope. Will hold blood pressure medication for now and monitor. consult social science research assistant for discharge planning home health services. Cont cardiac monitoring Orthostatic vital signs fall precautions PT/OT evaluation Patient had syncope workup in March 2018 Cardiac Echo 2018: LVEF 60-65%. Atypical septal motion due to BBB. Definity echo contrast was used. Moderate left ventricular diastolic dysfunction. Normal right ventricular structure and function. Mild mitral regurgitation. No pulmonary hypertension based on TR signal obtained. (3) Afib Current Visit: Yes Status: Chronic Assessment and plan: Patient is currently on in sinus alyssa rhythm, will continue patient home medications, continuous cardiac monitoring Qualifiers: Atrial fibrillation type: chronic Qualified Code(s): I48.2 - Chronic atrial fibrillation (4) CAD (coronary artery disease) Current Visit: No Status: Chronic Assessment and plan: Will continue patient home medications Qualifiers: Coronary Disease-Associated Artery/Lesion type: [place] artery [place] vs. transplanted heart: [place] heart Associated angina: without angina Qualified Code(s): I25.10 - Atherosclerotic heart disease of [place] coronary artery with out angina pectoris (5) DM2 (diabetes mellitus, type 2) Current Visit: No Status: Chronic Assessment and plan: Patient reports that he has had several episodes of hyperglycemia at home, will start patient on a conservative sliding scale, with home Lantus, regimen. 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 (6) DVT prophylaxis Current Visit: No Status: Chronic Assessment and plan: Will continue patients home medication Eliquis (7) HTN (hypertension) Current Visit: No Status: Chronic Assessment and plan: Will contine to monitor, will restart patient home medications once patient returns to baseline, orthostatic vital signs Qualifiers: Hypertension type: essential hypertension Qualified Code(s): I10 - Essential (primary) hypertension (8) Paroxysmal A-fib Current Visit: No Status: Chronic Assessment and plan: Will continue to monitor, will resume patient home medications, currently sinus rhythm controlled rate (9) Falls frequently Current Visit: Yes Status: Acute Assessment and plan: Will initiate fall risks precautions Consult social science research assistant for home health PT/OT evaluation (10) ANN (acute kidney injury) Current Visit: Yes Status: Acute Assessment and plan: Creat 1.60 now, was given IV fluid in the ER, will hold diuretics and avoid nephotoxins, and monitor creat levels - Time Spent With Patient Total time spent is greater than 50% in coordination of care (as documented) at patient's floor/unit and/or counseling patient:
[2018-08-12] MEDS: Insulin LISPRO 300 UNITS/3 ML VIAL SQ SCH (16:30)
--- NOTE | 2018-08-12 17:23 | Electrocardiograph Report ---
[facility] Test Date: 2018-08-12 Pat Name: Heather Davidson Department: EXAM7 Room: 3A46 Gender: M Content Specialist: : 1940 Requested By: Timothy Davalos Order Number: [id number] Reading MD: Kvng Banks Measurements Intervals [place] Rate: 58 P: 0 GA: 73 QRS: 36 QRSD: 183 T: 108 QT: 487 QTc: 479 Interpretive Statements Sinus rhythm Short GA interval IVCD, consider atypical LBBB Baseline wander in lead(s) V1 Electronically Signed On 08-12-2018 17:21:41 EDT by Kvng Banks
[2018-08-12 17:25] LABS: Bilirubin,Urine Negative (Negative); Blood,Urine Negative (Negative); Clarity,Urine Clear (Clear); Color,Urine Yellow (Yellow); Glucose,Urine (UA) >=1000 mg/dL (Normal); Ketones,Urine Negative (Negative); Leukocyte Esterase,Urine Negative (Negative); Nitrite,Urine Negative (Negative); PH,Urine 5.5 pH Units (5.0-8.0); Protein,Urine Negative (Neg-Trace); Specific Gravity,Urine 1.026 (1.010-1.025); Urobilinogen,Urine Normal (Normal)
[2018-08-12 17:43] LABS: Estimated Average Glucose 183 mg/dl
[2018-08-12] MEDS ORDERED: Insulin DETEMIR 100 UNIT/ML X5UNITS SQ SCH (21:00)
[2018-08-12] MEDS ORDERED: Insulin LISPRO 300 UNITS/3 ML VIAL SQ SCH (21:00)
[2018-08-12] MEDS: Apixaban 5 MG TABLET PO SCH (21:34)
[2018-08-12] MEDS: Pregabalin 75 MG CAPSULE PO SCH (21:34)
[2018-08-13 04:39] LABS: Basophils % 0.3 %; Eosinophils % 0.2 %; Hematocrit 36.5 % (37.5-50.1); Hemoglobin 11.7 g/dL (12.9-16.9); Immature Granulocytes % 0.3 % (0-4); Lymphocytes # 1.2 K/mcL (0.6-4.6); Lymphocytes % 21.1 %; Mean Corpuscular HGB Conc 32.1 g/dL (31.6-35.5); Mean Corpuscular Hemoglobin 28.6 pg (28.0-33.3); Mean Corpuscular Volume 89.2 fL (83.0-100.0); Mean Platelet Volume 12.4 fL (9.4-12.4); Monocytes # 0.6 K/mcL (0.0-1.3); Neutrophils # 3.9 K/mcL (1.6-8.9); Platelet Count 156 K/mcL (140-400); Red Blood Count 4.09 M/mcL (4.19-5.50); Red Cell Distribution Width 13.6 % (11.5-14.5); Segmented Neutrophils % 67.1 %; White Blood Count 5.8 K/mcL (4.3-11.1)
[2018-08-13 05:02] LABS: Alanine Aminotransferase 20 Units/L (7-52); Albumin 3.6 g/dL (3.5-5.7); Albumin/Globulin Ratio 1.3 (1.1-2.2); Alkaline Phosphatase 77 Units/L (34-104); Aspartate Amino Transferase 15 Units/L (13-39); BUN/Creatinine Ratio 22 (6-26); Bilirubin,Total 0.3 mg/dL (0.3-1.0); Blood Urea Nitrogen 33 mg/dL (8-23); Calcium 8.9 mg/dL (8.6-10.3); Carbon Dioxide 24 mEq/L (23-29); Chloride 107 mEq/L (98-107); Globulin 2.8 g/dL (2.4-3.5); Glucose 133 mg/dL (70-105); Magnesium 2.2 mg/dL (1.6-2.6); Osmolality,Calculated 295 (280-300); Potassium 3.9 mEq/L (3.5-5.1); Sodium 138 mEq/L (136-145); Total Protein 6.4 g/dL (6.4-8.9); eGFR For African Americans 56 (> 60); eGFR For Non-African Americans 46 (> 60)
[2018-08-13 05:04] LABS: Troponin I < 0.03 ng/mL (< 0.04)
[2018-08-13] MEDS: Insulin LISPRO 300 UNITS/3 ML VIAL SQ SCH ×3 (07:37→16:56)
[2018-08-13] MEDS: Pregabalin 75 MG CAPSULE PO SCH (08:30)
[2018-08-13] MEDS: Apixaban 5 MG TABLET PO SCH (08:31)
[2018-08-13] MEDS ORDERED: Tiotropium 18 MCG inhalation IH SCH (09:00)
[2018-08-13] MEDS ORDERED: Cyanocobalamin (B-12) 1,000 MCG TABLET PO SCH (09:00)
[2018-08-13] MEDS ORDERED: FLUoxetine 20 MG CAPSULE PO SCH (09:00)
--- NOTE | 2018-08-13 09:27 | Internal Med Progress Note ---
Hospitalist Progress Note - Encounter Date of Encounter: 08/13/18 - Exam Vitals: Temp Pulse Resp BP Pulse Ox 97.7 F 65 16 135/69 96 08/13/18 06:24 08/13/18 06:24 08/13/18 06:24 08/13/18 06:24 08/13/18 06:24 Exam: . - Assessment and Plan (1) Syncope and collapse Current Visit: Yes Status: Acute Assessment and Plan: Patient reports that he has had prior falls, related to recent medication changes. Patient is on multiple antihypertensives as well as diaretics, lyrica, unsure of medication dosages and frequencies. Suspect that patient may not be taking medications correctly, which may be causing syncope. Will hold blood pressure medication for now and monitor. consult transition social worker for discharge planning home health services. Cont cardiac monitoring Orthostatic vital signs fall precautions PT/OT evaluation Patient had syncope workup in March 2018 Cardiac Echo 2018: LVEF 60-65%. Atypical septal motion due to BBB. Definity echo contrast was used. Moderate left ventricular diastolic dysfunction. Normal right ventricular structure and function. Mild mitral regurgitation. No pulmonary hypertension based on TR signal obtained. (2) CAD (coronary artery disease) Current Visit: No Status: Chronic Assessment and Plan: Will continue patient home medications (3) HTN (hypertension) Current Visit: No Status: Chronic Assessment and Plan: Will contine to monitor, will restart patient home medications once patient returns to baseline, orthostatic vital signs (4) DM2 (diabetes mellitus, type 2) Current Visit: No Status: Chronic Assessment and Plan: Patient reports that he has had several episodes of hyperglycemia at home, will start patient on a conservative sliding scale, with home Lantus, regimen. Hold oral mediations for now, accucheck ACHS (5) Afib Current Visit: Yes Status: Chronic (6) Paroxysmal A-fib Current Visit: No Status: Chronic (7) DVT prophylaxis Current Visit: No Status: Chronic (8) Dehydration Current Visit: Yes Status: Acute (9) Falls frequently Current Visit: Yes Status: Acute (10) ANN (acute kidney injury) Current Visit: Yes Status: Acute - Time Spent with Patient Total time spent is greater than 50% in coordination of care (as documented) at patient's floor/unit and/or counseling patient: Internal Medicine: Result - Labs CBC & Chem 7: 08/13/18 03:39 08/13/18 03:39 Labs: Short CBC 08/12/18 08/13/18 Range/Units Unknown 03:39 WBC 5.6 5.8 (4.3-11.1) K/mcL Hgb 13.0 11.7 L (12.9-16.9) g/dL Hct 40.8 36.5 L (37.5-50.1) % Plt Count 177 156 (140-400) K/mcL Neutrophils # 4.0 3.9 (1.6-8.9) K/mcL BMP 08/12/18 08/13/18 Unknown 03:39 Sodium 137 138 Potassium 4.4 3.9 Chloride 103 107 Carbon Dioxide 25 24 BUN 36 H 33 H Creatinine 1.60 H 1.48 H Glucose 269 H 133 H Calcium 9.6 8.9 Cardiac Enzymes 08/12/18 08/12/18 08/12/18 Range/Units 16:11 22:07 Unknown Troponin I < 0.03 < 0.03 < 0.03 (< 0.04) ng/mL 08/13/18 Range/Units 03:39 Troponin I < 0.03 (< 0.04) ng/mL Liver Function 08/13/18 Range/Units 03:39 Total Bilirubin 0.3 (0.3-1.0) mg/dL AST 15 (13-39) Units/L ALT 20 (7-52) Units/L Alkaline Phosphatase 77 (34-104) Units/L Albumin 3.6 (3.5-5.7) g/dL Urine 08/12/18 Range/Units 17:09 Urine Color Yellow (Yellow) Urine Clarity Clear (Clear) Urine pH 5.5 (5.0-8.0) pH Units Ur Specific [place] 1.026 H (1.010-1.025) Urine Protein Negative (Neg-Trace) mg/dL Urine Glucose (UA) >=1000 H (Normal) mg/dL - Impressions Impressions Chest X-Ray 08/12/18 11:09 IMPRESSION: No acute cardiopulmonary disease. D/ / 08/12/2018 13:12:34 [facility] Inter[facility] Provider: Joaquín Austin MD Head CT 08/12/18 11:09 IMPRESSION: No acute intracranial abnormality. D/ / 08/12/2018 13:08:24 Sorin Mancuso MD / joelay Interpreting Provider: Sorin Mancuso MD Elbow X-Ray 08/12/18 11:17 IMPRESSION: Mild degenerative changes are seen involving the elbow, without acute osseous fracture, dislocation or joint effusion. D/ / Davis Solo MD / Davis Solo MD Interpreting Provider: Davis Solo MD Consult Discharge Plan - Plan Referrals: Glenn Saucedo MD [Primary Care Provider] - (2) CAD (coronary artery disease) Qualifiers: Coronary Disease-Associated Artery/Lesion type: [place] artery [place] vs. 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
[2018-08-13] MEDS ORDERED: 0.9 % Sodium Chloride 1,000 ML IVC SCH ×3 (09:30→15:00)
--- NOTE | 2018-08-13 14:28 | Discharge Summary ---
Date of Encounter: 08/13/18 Time of Encounter: 16:00 - Discharge Diagnosis (1) Syncope and collapse Priority: Primary Status: Acute Assessment and Plan: 78 year old male with a PMH of DM2, [place], HTN, CAD, COPD, Afib, and hyperlipi demia. Patient reports that he had a recent hospital admission in March for syncope episode, where Cardizem was discontinued. Patient also reports that he has had several medication changes with PCP and Department Specialist since and has not felt well since his Cardizem was discontinued. Patient reports that this am he was at breakfast with his friends, where he became dizzy with neck pain. Patient states that he drove himself home, and sat on his porch. The patients states that he was still dizzy, when he arose to walk down the stairs to go into his bedroom to take his blood pressure he "passed out." Patient does not recall how long he was unconscious, but when he woke up he was on the floor. He was assessed with a syncopal episode likely secondary to dehydration and polypharmacy with ANN. He was noted to be taking multiple BP meds. he is on amldipin, hydralazine, losartan/HCTZ and coreg. His BP and hR has been stable on only coreg in the last 24 hrs. We will be discontinuing his losartan/HCTZ and hydralazine and will reduce his dose of amlodipine on discharge. He is to follow up with PCP and cardiology in a week. Discharged in a stable condition. He was advised of his medication adjustments. He also had an acute kidney injury that improved with fluids. (2) CAD (coronary artery disease) Priority: Primary Status: Chronic Qualifiers: Coronary Disease-Associated Artery/Lesion type: [place] artery [place] vs. transplanted heart: [place] heart Associated angina: without angina Qualified Code(s): I25.10 - Atherosclerotic heart disease of [place] coronary artery without angina pectoris (3) HTN (hypertension) Priority: Primary Status: Chronic Qualifiers: Hypertension type: essential hypertension Qualified Code(s): I10 - Essential (primary) hypertension (4) Afib Priority: Primary Status: Chronic Qualifiers: Atrial fibrillation type: chronic Qualified Code(s): I48.2 - Chronic atrial fibrillation (5) DM2 (diabetes mellitus, type 2) Priority: Primary Status: Chronic Qualifiers: Diabetes mellitus continuous churn buttermaker insulin use: with alf use Diabetes mellitus complication status: with hyperglycemia Qualified Code(s): E11.65 - Type 2 diabetes mellitus with hyperglycemia; 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 Davidson is a 78 year old male - Time Spent with Patient Total time spent providing and/or coordinating discharge services: - Discharge Medications Prescriptions: New amLODIPine [Norvasc] 5 mg PO DAILY #30 tablet Continued GlipiZIDE XL (24 HR) [Glucotrol XL] 10 mg PO DAILY Amitriptyline [Elavil] 10 mg PO QPM Pregabalin [Lyrica] 150 mg PO BID Cyanocobalamin (Vitamin B-12) [Vitamin B12] 1,000 mcg PO DAILY Canagliflozin [Invokana] 300 mg PO DAILY Dulaglutide [Trulicity] 0.75 mg PO TH FLUoxetine HCl [Prozac] 20 mg PO DAILY Carvedilol 12.5 mg PO BID Tiotropium [Spiriva] 18 mcg IH DAILY Insulin Glargine,Hum.rec.anlog [Lantus Solostar] 40 unit SQ HS Albuterol Sulfate [Ventolin Hfa] 2 puff IH Q4H PRN PRN Reason: shortness of breathing Atorvastatin [Lipitor] 40 mg PO DAILY Apixaban [Eliquis] 5 mg PO BID Discontinued Amlodipine Besylate 10 mg PO DAILY Hydralazine HCl 50 mg PO TID Losartan/Hydrochlorothiazide [Losartan-Hctz 100-25 mg Tab] 1 tab PO DAILY Home Medications: Albuterol Sulfate [Ventolin Hfa] 2 puff IH Q4H PRN 03/13/18 [History] Apixaban [Eliquis] 5 mg PO BID 03/13/18 [History] Atorvastatin [Lipitor] 40 mg PO DAILY 03/13/18 [History] Carvedilol 12.5 mg PO BID 03/13/18 [History] FLUoxetine HCl [Prozac] 20 mg PO DAILY 03/13/18 [History] Insulin Glargine,Hum.rec.anlog [Lantus Solostar] 40 unit SQ HS 03/13/18 [History] Tiotropium [Spiriva] 18 mcg IH DAILY 03/13/18 [History] GlipiZIDE XL (24 HR) [Glucotrol XL] 10 mg PO DAILY 03/14/18 [History] Amitriptyline [Elavil] 10 mg PO QPM 08/12/18 [History] Canagliflozin [Invokana] 300 mg PO DAILY 08/12/18 [History] Cyanocobalamin (Vitamin B-12) [Vitamin B12] 1,000 mcg PO DAILY 08/12/18 [History] Dulaglutide [Trulicity] 0.75 mg PO TH 08/12/18 [History] Pregabalin [Lyrica] 150 mg PO BID 08/12/18 [History] amLODIPine [Norvasc] 5 mg PO DAILY #30 tablet 08/13/18 [Rx] Allergies/Adverse Reactions: Allergy/AdvReac Type Severity Reaction Status Date / Time Iodinated Contrast- Oral and Allergy Hives Verified 05/03/18 10:22 IV Dye Date of admission: 08/12/18 13:36 Primary care physician: Glenn Saucedo MD Consults: 08/12/18 16:00 Consult to Pastoral Services [CONS] Routine Comment: 08/12/18 16:03 Consult to Asbestos Removal Supervisor [CONS] Routine Reason for SW Consult: discharge planning - H/H 08/13/18 11:47 Consult to Occupational Therapy [CONS] Routine Comment: Evaluate, develop and implement POC Reason for Consult: weakness Does patient have active BEDREST order?: No Is patient medically & hemodynamically stable?: Yes Patient assessed for mobility or mobilized this visit?: No Consult to Physical Therapy [CONS] Routine Comment: Evaluate, develop and implement POC Reason for Consult: weakness Does patient have active BEDREST order?: No Is patient medically & hemodynamically stable?: Yes Patient assessed for mobility or mobilized this visit?: No - Constitutional Vitals: Temp Pulse Resp BP Pulse Ox 97.8 F 59 16 163/72 94 08/13/18 11:12 08/13/18 12:38 08/13/18 11:12 08/13/18 12:38 08/13/18 11:12 General appearance: Present: A&O X 3 Exam: NAD - Head Head exam: Present: atraumatic, normocephalic - Eye Eye exam: Present: PERRL, conjuntiva pink, sclera anicteric Pupils: Present: PERRL - Neck Neck exam general surgery: Present: supple, trachea midline. Absent: lymphadenopathy - Respiratory Respiratory exam: Present: CTAB. Absent: accessory muscle use, rales, rhonchi, wheezes - Cardiovascular Cardiovascular exam: Present: RRR, +S1, +S2. Absent: diastolic murmur, gallop, rubs, systolic murmur - GI/Abdominal GI/Abdominal exam: Present: normal bowel sounds, soft, no peritoneal signs. Absent: distended, tenderness - Extremities Exam Extremities exam: Present: warm, radial pulses palpable and symmetrical. Absent: calf tenderness, cyanotic, pedal edema - Neurological Exam Neurological exam: Present: CN II-XII intact, oriented X3, no focal deficits. Absent: pronater drift, facial droop, speech deficit - Skin Skin exam: Present: dry, intact - Patient Status Disposition: Home, Self-Care Condition: Good - Discharge Instructions Follow Up With: Glenn Saucedo MD [Primary Care Provider] -
[2018-08-13 18:53] VITALS: BP 170/68
== END 2018-08-13 19:51 | disposition home or self-care (01) ==
LOC: 3ANU 10:31 → EMEROOARM 10:31 → 3ANU 14:42
PROVIDERS: ADMIT Internal Medicine; ATTEND Internal Medicine

== ENCOUNTER 2018-11-04 13:51 | Observation (INO) ==
[2018-11-04] MEDS ORDERED: 0.9 % Sodium Chloride 1,000 ML IVC ONE (14:08)
[2018-11-04 14:40] LABS: Basophils % 0.2 %; Hematocrit 43.8 % (37.5-50.1); Immature Granulocytes % 0.3 % (0-4); Lymphocytes # 1.1 K/mcL (0.6-4.6); Lymphocytes % 16.8 %; Mean Corpuscular Hemoglobin 27.3 pg (28.0-33.3); Mean Corpuscular Volume 85.4 fL (83.0-100.0); Mean Platelet Volume 12.2 fL (9.4-12.4); Monocytes # 0.6 K/mcL (0.0-1.3); Monocytes % 9.7 %; Neutrophils # 4.8 K/mcL (1.6-8.9); Platelet Count 171 K/mcL (140-400); Red Blood Count 5.13 M/mcL (4.19-5.50); Red Cell Distribution Width 13.7 % (11.5-14.5); White Blood Count 6.6 K/mcL (4.3-11.1)
[2018-11-04] MEDS ORDERED: Tdap (Boostrix) Vaccine 0.5 ML SYRINGE IM ONE (14:41)
[2018-11-04 14:47] LABS: INR 1.5; Prothrombin Time 16.8 Seconds (9.4-12.1)
[2018-11-04 14:49] LABS: Activated Partial Thrombo Time 42.2 Seconds (26.0-36.0)
[2018-11-04 15:00] LABS: BUN/Creatinine Ratio 16 (6-26); Blood Urea Nitrogen 22 mg/dL (8-23); Calcium 9.4 mg/dL (8.6-10.3); Carbon Dioxide 25 mEq/L (23-29); Chloride 105 mEq/L (98-107); Glucose 282 mg/dL (70-105); Osmolality,Calculated 294 (280-300); Sodium 135 mEq/L (136-145); Troponin I < 0.03 ng/mL (< 0.04); eGFR For African Americans > 60 (> 60); eGFR For Non-African Americans 52 (> 60)
[2018-11-04] MEDS ORDERED: Acetaminophen 325 MG TABLET PO PRN (16:20)
[2018-11-04] MEDS ORDERED: Naloxone 0.4 MG/ML INJ IVP PRN (16:20)
[2018-11-04] MEDS ORDERED: *HR* HYDROcodone/Acet 5/325 mg TABLET PO PRN (16:23)
[2018-11-04] MEDS: *HR* HYDROcodone/Acet 5/325 mg TABLET PO ONE ×2 (17:14→17:16)
[2018-11-04] MEDS ORDERED: *HR* FentaNYL (PF) 100 MCG/2 ML VIAL IVP ONE (17:16)
[2018-11-04] MEDS ORDERED: D5% in Water 1,000 ML IVC PRN (19:11)
[2018-11-04] MEDS ORDERED: *HR* Dextrose 50 % in Water (Syg) 50 ML SYRINGE IVP PRN (19:11)
[2018-11-04] MEDS ORDERED: Dextrose Gel 15 GM/37.5 ML TUBE PO PRN ×2 (19:11)
[2018-11-04] MEDS ORDERED: Insulin DETEMIR 100 UNIT/ML X5UNITS SQ SCH (21:00)
[2018-11-04] MEDS: Pregabalin 75 MG CAPSULE PO SCH (21:14)
[2018-11-04] MEDS: Apixaban 5 MG TABLET PO SCH (21:14)
[2018-11-04] MEDS: 0.9 % Sodium Chloride 1,000 ML IVC SCH (21:15)
[2018-11-04] MEDS: Insulin LISPRO 300 UNITS/3 ML VIAL SQ SCH (21:15)
[2018-11-05] MEDS ORDERED: *HR* OxyCODONE Immed Rel 5 MG TABLET PO ONE (00:06)
[2018-11-05 04:31] LABS: Hematocrit 39.8 % (37.5-50.1); Hemoglobin 12.7 g/dL (12.9-16.9); Mean Corpuscular HGB Conc 31.9 g/dL (31.6-35.5); Mean Corpuscular Hemoglobin 27.5 pg (28.0-33.3); Mean Corpuscular Volume 86.1 fL (83.0-100.0); Mean Platelet Volume 11.3 fL (9.4-12.4); Platelet Count 136 K/mcL (140-400); Red Blood Count 4.62 M/mcL (4.19-5.50); Red Cell Distribution Width 13.7 % (11.5-14.5); White Blood Count 5.1 K/mcL (4.3-11.1)
[2018-11-05 04:54] LABS: BUN/Creatinine Ratio 15 (6-26); Blood Urea Nitrogen 17 mg/dL (8-23); Calcium 8.5 mg/dL (8.6-10.3); Carbon Dioxide 24 mEq/L (23-29); Chloride 111 mEq/L (98-107); Chol/HDL Ratio 2.5 (0-4.9); Cholesterol 76 mg/dL (< 200); Glucose 68 mg/dL (70-105); HDL Cholesterol 30 mg/dL (40-59); LDL Cholesterol,Calculated 30 mg/dL (0-99); Osmolality,Calculated 294 (280-300); Phosphorous 4.1 mg/dL (2.7-4.5); Potassium 3.8 mEq/L (3.5-5.1); Sodium 142 mEq/L (136-145); Triglycerides 82 mg/dL (< 150); eGFR For African Americans > 60 (> 60); eGFR For Non-African Americans > 60 (> 60)
[2018-11-05] MEDS: Insulin LISPRO 300 UNITS/3 ML VIAL SQ SCH ×4 (07:40→22:30)
[2018-11-05] MEDS: 0.9 % Sodium Chloride 1,000 ML IVC SCH (08:19)
[2018-11-05] MEDS: FLUoxetine 20 MG CAPSULE PO SCH (08:20)
[2018-11-05] MEDS: amLODIPine 5 MG TABLET PO SCH (08:20)
[2018-11-05] MEDS: Pregabalin 75 MG CAPSULE PO SCH ×2 (08:20→20:48)
[2018-11-05] MEDS: Apixaban 5 MG TABLET PO SCH ×2 (08:20→20:48)
[2018-11-05] MEDS ORDERED: Perflutren Lipid Microsphere 1.3 ML in 0.9 % Sodium Chloride 8.7 ML IVP ONE ×2 (15:19→16:30)
[2018-11-05] MEDS ORDERED: *HR* FentaNYL (PF) 100 MCG/2 ML VIAL IVP ONE (18:42)
[2018-11-05] MEDS ORDERED: *HR* FentaNYL (PF) 100 MCG/2 ML VIAL IVP PRN (19:36)
[2018-11-05 19:55] LABS: Basophils % 0.3 %; Immature Granulocytes % 0.3 % (0-4); Lymphocytes # 0.9 K/mcL (0.6-4.6); Lymphocytes % 12.4 %; Mean Corpuscular HGB Conc 31.7 g/dL (31.6-35.5); Mean Corpuscular Volume 85.2 fL (83.0-100.0); Mean Platelet Volume 11.7 fL (9.4-12.4); Monocytes # 0.7 K/mcL (0.0-1.3); Monocytes % 9.1 %; Neutrophils # 5.9 K/mcL (1.6-8.9); Platelet Count 144 K/mcL (140-400); Red Cell Distribution Width 13.8 % (11.5-14.5); Segmented Neutrophils % 77.9 %; White Blood Count 7.5 K/mcL (4.3-11.1)
[2018-11-05 20:18] LABS: Hemoglobin 14.6 g/dL (12.9-16.9)
[2018-11-05 20:22] LABS: Alanine Aminotransferase 17 Units/L (7-52); Albumin 4.2 g/dL (3.5-5.7); Albumin/Globulin Ratio 1.4 (1.1-2.2); Alkaline Phosphatase 103 Units/L (34-104); Aspartate Amino Transferase 17 Units/L (13-39); BUN/Creatinine Ratio 14 (6-26); Bilirubin,Total 0.5 mg/dL (0.3-1.0); Blood Urea Nitrogen 16 mg/dL (8-23); Calcium 9.5 mg/dL (8.6-10.3); Carbon Dioxide 24 mEq/L (23-29); Chloride 105 mEq/L (98-107); Glucose 177 mg/dL (70-105); Osmolality,Calculated 290 (280-300); Sodium 137 mEq/L (136-145); Total Protein 7.2 g/dL (6.4-8.9); eGFR For African Americans > 60 (> 60); eGFR For Non-African Americans > 60 (> 60)
[2018-11-05] MEDS ORDERED: Insulin DETEMIR 100 UNIT/ML X5UNITS SQ SCH (21:00)
[2018-11-05] MEDS ORDERED: Azithromycin 500 MG in 0.9 % Sodium Chloride 250 ML IVPB SCH (22:00)
[2018-11-05] MEDS ORDERED: cefTRIAXone 1,000 MG in Water for inj. (sterile) 10 ML IVP SCH (22:00)
[2018-11-06] MEDS: 0.9 % Sodium Chloride 1,000 ML IVC SCH ×2 (00:50→13:07)
[2018-11-06 04:50] LABS: Hematocrit 41.4 % (37.5-50.1); Hemoglobin 13.1 g/dL (12.9-16.9); Mean Corpuscular HGB Conc 31.6 g/dL (31.6-35.5); Mean Corpuscular Volume 85.2 fL (83.0-100.0); Mean Platelet Volume 12.3 fL (9.4-12.4); Platelet Count 142 K/mcL (140-400); Red Blood Count 4.86 M/mcL (4.19-5.50); Red Cell Distribution Width 13.8 % (11.5-14.5); White Blood Count 7.8 K/mcL (4.3-11.1)
[2018-11-06 05:08] LABS: BUN/Creatinine Ratio 15 (6-26); Blood Urea Nitrogen 19 mg/dL (8-23); Carbon Dioxide 26 mEq/L (23-29); Chloride 108 mEq/L (98-107); Glucose 112 mg/dL (70-105); Osmolality,Calculated 291 (280-300); Potassium 4.2 mEq/L (3.5-5.1); Sodium 139 mEq/L (136-145); eGFR For African Americans > 60 (> 60); eGFR For Non-African Americans 55 (> 60)
[2018-11-06] MEDS: FLUoxetine 20 MG CAPSULE PO SCH (08:44)
[2018-11-06] MEDS: amLODIPine 5 MG TABLET PO SCH (08:46)
[2018-11-06] MEDS: Apixaban 5 MG TABLET PO SCH (08:46)
[2018-11-06] MEDS: Pregabalin 75 MG CAPSULE PO SCH (08:46)
[2018-11-06] MEDS: Insulin LISPRO 300 UNITS/3 ML VIAL SQ SCH ×2 (08:47→11:33)
[2018-11-06 12:09] VITALS: BP 167/89
[2018-11-06] MEDS ORDERED: FLU Vac QV 19-20 (6Month+)/PF 0.5 ML SYRINGE IM ONE (14:51)
== END 2018-11-06 17:11 | disposition home or self-care (01) ==
LOC: 2NENU 13:51 → EMEROOARM 13:51 → SUATTDRO 17:21 → 2NENU 18:50
PROVIDERS: ADMIT Internal Medicine; ATTEND Internal Medicine

== ENCOUNTER 2019-08-06 15:34 | Inpatient (IN) ==
[2019-08-06] MEDS ORDERED: Aspirin 325 MG TABLET PO ONE (15:42)
[2019-08-06 15:59] LABS: INR 1.2; Prothrombin Time 14.1 Seconds (9.4-12.1)
[2019-08-06 16:01] LABS: Activated Partial Thrombo Time 43.7 Seconds (26.0-36.0)
[2019-08-06 16:15] LABS: BUN/Creatinine Ratio 27 (6-26); Blood Urea Nitrogen 38 mg/dL (8-23); Calcium 9.2 mg/dL (8.6-10.3); Carbon Dioxide 25 mEq/L (23-29); Chloride 106 mEq/L (98-107); Glucose 124 mg/dL (70-105); Osmolality,Calculated 300 (280-300); Potassium 4.1 mEq/L (3.5-5.1); Sodium 140 mEq/L (136-145); eGFR For African Americans > 60 (> 60); eGFR For Non-African Americans 50 (> 60)
[2019-08-06 16:16] LABS: Troponin I < 0.03 ng/mL (< 0.04)
[2019-08-06 16:30] LABS: Thyroid Stimulating Hormone 0.128 mcIU/mL (0.340-5.600)
[2019-08-06 16:32] LABS: Basophils % 0.2 %; Eosinophils % 0.2 %; Hematocrit 44.7 % (37.5-50.1); Hemoglobin 14.1 g/dL (12.9-16.9); Immature Granulocytes % 0.5 % (0-4); Lymphocytes # 1.1 K/mcL (0.6-4.6); Lymphocytes % 18.4 %; Mean Corpuscular HGB Conc 31.5 g/dL (31.6-35.5); Mean Corpuscular Hemoglobin 28.7 pg (28.0-33.3); Mean Platelet Volume 12.6 fL (9.4-12.4); Monocytes # 0.7 K/mcL (0.0-1.3); Monocytes % 12.3 %; Neutrophils # 4.1 K/mcL (1.6-8.9); Platelet Count 162 K/mcL (140-400); Red Blood Count 4.91 M/mcL (4.19-5.50); Red Cell Distribution Width 13.6 % (11.5-14.5); Segmented Neutrophils % 68.4 %; White Blood Count 5.9 K/mcL (4.3-11.1)
[2019-08-06] MEDS ORDERED: Ondansetron 4 MG/2 ML VIAL IVP PRN (18:13)
[2019-08-06] MEDS ORDERED: *HR* HYDROcodone/Acet 5/325 mg TABLET PO PRN (18:13)
[2019-08-06] MEDS ORDERED: Naloxone 0.4 MG/ML INJ IVP PRN (18:13)
[2019-08-06] MEDS: Insulin LISPRO 300 UNITS/3 ML VIAL SQ SCH (18:37)
[2019-08-06] MEDS ORDERED: Apixaban 5 MG TABLET PO SCH (21:00)
[2019-08-06] MEDS: Insulin DETEMIR 100 UNIT/ML X5UNITS SQ SCH (21:07)
[2019-08-06] MEDS: Pregabalin 75 MG CAPSULE PO SCH (21:07)
[2019-08-07 01:35] LABS: Basophils % 0.2 %; Hematocrit 42.6 % (37.5-50.1); Hemoglobin 14.1 g/dL (12.9-16.9); Immature Granulocytes % 0.3 % (0-4); Lymphocytes # 1.2 K/mcL (0.6-4.6); Lymphocytes % 18.2 %; Mean Corpuscular HGB Conc 33.1 g/dL (31.6-35.5); Mean Corpuscular Hemoglobin 29.4 pg (28.0-33.3); Mean Corpuscular Volume 88.8 fL (83.0-100.0); Mean Platelet Volume 12.5 fL (9.4-12.4); Monocytes # 0.7 K/mcL (0.0-1.3); Monocytes % 10.7 %; Neutrophils # 4.6 K/mcL (1.6-8.9); Platelet Count 149 K/mcL (140-400); Red Cell Distribution Width 13.6 % (11.5-14.5); Segmented Neutrophils % 70.6 %; White Blood Count 6.4 K/mcL (4.3-11.1)
[2019-08-07 01:51] LABS: Alanine Aminotransferase 13 Units/L (7-52); Albumin 3.9 g/dL (3.5-5.7); Albumin/Globulin Ratio 1.4 (1.1-2.2); Alkaline Phosphatase 106 Units/L (34-104); Aspartate Amino Transferase 12 Units/L (13-39); BUN/Creatinine Ratio 28 (6-26); Bilirubin,Total 0.4 mg/dL (0.3-1.0); Blood Urea Nitrogen 34 mg/dL (8-23); Calcium 9.2 mg/dL (8.6-10.3); Carbon Dioxide 23 mEq/L (23-29); Chloride 107 mEq/L (98-107); Globulin 2.8 g/dL (2.4-3.5); Glucose 152 mg/dL (70-105); Osmolality,Calculated 299 (280-300); Potassium 3.7 mEq/L (3.5-5.1); Sodium 139 mEq/L (136-145); Total Protein 6.7 g/dL (6.4-8.9); eGFR For African Americans > 60 (> 60); eGFR For Non-African Americans 57 (> 60)
[2019-08-07] MEDS: Tiotropium 18 MCG inhalation IH SCH (07:45)
[2019-08-07] MEDS: *HR* Metformin 500 MG TABLET PO SCH ×2 (09:06→18:08)
[2019-08-07] MEDS: Pregabalin 75 MG CAPSULE PO SCH ×3 (09:07→21:32)
[2019-08-07] MEDS: *HR* GlipiZIDE XL (24 HR) 10 MG TABLET PO SCH (09:07)
[2019-08-07] MEDS: amLODIPine 5 MG TABLET PO SCH (09:07)
[2019-08-07] MEDS: FLUoxetine 20 MG CAPSULE PO SCH (09:10)
[2019-08-07] MEDS: Insulin LISPRO 300 UNITS/3 ML VIAL SQ SCH ×3 (09:12→18:08)
[2019-08-07] MEDS ORDERED: methylPREDNISolone 4 MG TABLET PO ONE (10:13)
[2019-08-07] MEDS ORDERED: CeFAZolin Syr 2,000MG/20 ML 2,000 MG/20 ML SYRINGE IVPB ONE (10:13)
[2019-08-07] MEDS ORDERED: 0.9 % Sodium Chloride 2,000 ML ONE (11:55)
[2019-08-07] MEDS ORDERED: 0.9 % Sodium Chloride 500 ML ONE (11:59)
[2019-08-07] MEDS ORDERED: Water for inj. (sterile) 10 ML ONE (11:59)
[2019-08-07] MEDS ORDERED: *HR* Midazolam HCl 2 MG/2 ML VIAL ONE (12:10)
[2019-08-07] MEDS ORDERED: *HR* FentaNYL (PF) 100 MCG/2 ML VIAL ONE (12:10)
[2019-08-07] MEDS ORDERED: 0.9 % Sodium Chloride 1,000 ML IVC ONE (13:43)
[2019-08-07] MEDS: 0.9 % Sodium Chloride 1,000 ML IVC SCH (14:30)
[2019-08-07] MEDS: Acetaminophen 325 MG TABLET PO PRN (14:48)
[2019-08-07 15:03] LABS: Basophils % 0.1 %; Hematocrit 42.7 % (37.5-50.1); Hemoglobin 13.3 g/dL (12.9-16.9); Immature Granulocytes % 0.3 % (0-4); Lymphocytes # 1.1 K/mcL (0.6-4.6); Lymphocytes % 11.7 %; Mean Corpuscular HGB Conc 31.1 g/dL (31.6-35.5); Mean Corpuscular Hemoglobin 28.3 pg (28.0-33.3); Mean Corpuscular Volume 90.9 fL (83.0-100.0); Mean Platelet Volume 12.6 fL (9.4-12.4); Monocytes # 0.7 K/mcL (0.0-1.3); Monocytes % 7.6 %; Neutrophils # 7.7 K/mcL (1.6-8.9); Platelet Count 186 K/mcL (140-400); Red Cell Distribution Width 13.9 % (11.5-14.5); Segmented Neutrophils % 80.3 %; White Blood Count 9.6 K/mcL (4.3-11.1)
[2019-08-07 15:04] LABS: BUN/Creatinine Ratio 22 (6-26); Blood Urea Nitrogen 29 mg/dL (8-23); Calcium 8.3 mg/dL (8.6-10.3); Carbon Dioxide 22 mEq/L (23-29); Chloride 111 mEq/L (98-107); Glucose 153 mg/dL (70-105); Osmolality,Calculated 299 (280-300); Potassium 4.2 mEq/L (3.5-5.1); Sodium 140 mEq/L (136-145); eGFR For African Americans > 60 (> 60); eGFR For Non-African Americans 52 (> 60)
[2019-08-07] MEDS: CeFAZolin 2 GM/120 ML BAG IVPB SCH (16:10)
[2019-08-07] MEDS: Insulin DETEMIR 100 UNIT/ML X5UNITS SQ SCH (21:32)
[2019-08-08] MEDS: 0.9 % Sodium Chloride 1,000 ML IVC SCH (00:12)
[2019-08-08] MEDS: CeFAZolin 2 GM/120 ML BAG IVPB SCH (00:13)
[2019-08-08 02:36] LABS: Basophils % 0.1 %; Hematocrit 43.3 % (37.5-50.1); Hemoglobin 13.2 g/dL (12.9-16.9); Immature Granulocytes % 0.3 % (0-4); Lymphocytes # 1.1 K/mcL (0.6-4.6); Lymphocytes % 11.4 %; Mean Corpuscular HGB Conc 30.5 g/dL (31.6-35.5); Mean Corpuscular Hemoglobin 28.4 pg (28.0-33.3); Mean Corpuscular Volume 93.1 fL (83.0-100.0); Mean Platelet Volume 12.6 fL (9.4-12.4); Monocytes # 0.9 K/mcL (0.0-1.3); Monocytes % 9.6 %; Neutrophils # 7.2 K/mcL (1.6-8.9); Platelet Count 161 K/mcL (140-400); Red Blood Count 4.65 M/mcL (4.19-5.50); Segmented Neutrophils % 78.6 %; White Blood Count 9.2 K/mcL (4.3-11.1)
[2019-08-08 02:37] LABS: Calcium 8.5 mg/dL (8.6-10.3)
[2019-08-08 02:38] LABS: BUN/Creatinine Ratio 19 (6-26); Blood Urea Nitrogen 39 mg/dL (8-23); Carbon Dioxide 18 mEq/L (23-29); Chloride 110 mEq/L (98-107); Sodium 139 mEq/L (136-145); eGFR For African Americans 39 (> 60); eGFR For Non-African Americans 32 (> 60)
[2019-08-08] MEDS ORDERED: 0.9 % Sodium Chloride 500 ML IVC ONE (07:25)
[2019-08-08] MEDS: *HR* Metformin 500 MG TABLET PO SCH (07:34)
[2019-08-08] MEDS: amLODIPine 5 MG TABLET PO SCH (07:34)
[2019-08-08] MEDS: FLUoxetine 20 MG CAPSULE PO SCH (07:34)
[2019-08-08] MEDS: Pregabalin 75 MG CAPSULE PO SCH (07:34)
[2019-08-08] MEDS: *HR* GlipiZIDE XL (24 HR) 10 MG TABLET PO SCH (07:34)
[2019-08-08] MEDS: Insulin LISPRO 300 UNITS/3 ML VIAL SQ SCH (07:38)
[2019-08-08 07:39] VITALS: BP 139/77
[2019-08-08] MEDS: Tiotropium 18 MCG inhalation IH SCH (07:57)
[2019-08-08] MEDS: Acetaminophen 325 MG TABLET PO PRN (11:00)
[2019-08-08 12:14] LABS: Calcium 8.5 mg/dL (8.6-10.3); Potassium 4.7 mEq/L (3.5-5.1)
== END 2019-08-08 13:46 | disposition left against medical advice (07) | DRG 243 ==
LOC: 2NNU 15:34 → EMEROOARM 15:34 → SUATTDRO 18:13 → 2NNU 18:17
PROVIDERS: ADMIT Family Medicine; ATTEND Family Medicine